=== PATIENT | female | born 1960 | race Caucasian/White ===

== ENCOUNTER 2018-01-15 06:57 | Day surgery (SDC) | payer MEDICARE, OTHER ==
[2018-01-08 10:51] LABS: APPEARANCE,URINE CLEAR; BILIRUBIN,URINE NEGATIVE (NEGATIVE); COLOR,URINE YELLOW; GLUCOSE, URINE NEGATIVE (NEGATIVE); KETONES,URINE NEGATIVE (NEGATIVE); LEUKOCYTE ESTERASE,URINE NEGATIVE (NEGATIVE); NITRITE,URINE NEGATIVE (NEGATIVE); PROTEIN,URINE NEGATIVE (NEGATIVE); URINE SPECIFIC GRAVITY 1.013; UROBILINOGEN,URINE NEGATIVE mg/dL (<2.0)
[2018-01-08 11:03] LABS: HEMATOCRIT 44.1 % (36.0-47.0); HEMOGLOBIN 15.3 g/dL (12.0-15.5); MEAN CORPUSCULAR HEMOGLOBIN 30.4 pg (27.0-33.4); MEAN CORPUSCULAR HGB CONC 34.6 g/dL (32.0-36.0); MEAN CORPUSCULAR VOLUME 88 fl (80-97); PLATELET COUNT 301 10^3/uL (150-450); RED BLOOD COUNT 5.01 10^6/uL (3.72-5.28); RED CELL DISTRIBUTION WIDTH 13.7 % (11.5-14.0); WHITE BLOOD COUNT 9.7 10^3/uL (4.0-10.5)
[2018-01-08 11:22] LABS: ANION GAP 13 (5-19); BLOOD UREA NITROGEN 20 mg/dL (7-20); CALCIUM 9.6 mg/dL (8.4-10.2); CARBON DIOXIDE 30 mmol/L (22-30); CHLORIDE 103 mmol/L (98-107); GLUCOSE 111 mg/dL (75-110); POTASSIUM 4.5 mmol/L (3.6-5.0); SODIUM 146.1 mmol/L (137-145)
--- NOTE | 2018-01-08 11:46 | RADIOLOGY REPORT (SQ) ---
EXAM DESCRIPTION: CHEST PA/LATERAL COMPLETED DATE/TIME: 01/08/2018 11:28 am REASON FOR STUDY: PRE-OP COMPARISON: Chest films 07/05/2015 EXAM PARAMETERS: NUMBER OF VIEWS: two views TECHNIQUE: Digital Frontal and Lateral radiographic views of the chest acquired. RADIATION DOSE: NA LIMITATIONS: none FINDINGS: LUNGS AND PLEURA: No opacities, masses or pneumothorax. No pleural effusion. MEDIASTINUM AND HILAR STRUCTURES: No masses or contour abnormalities. HEART AND VASCULAR STRUCTURES: Heart normal size. No evidence for failure. BONES: Osteopenic. Old healed left posterior 7th through 9th rib fractures. Old left anterior 4th t hrough 7th rib fractures. HARDWARE: None in the chest. OTHER: Artifact from body jewelry over the presternal soft tissues. IMPRESSION: NO SIGNIFICANT RADIOGRAPHIC FINDING IN THE CHEST. TECHNICAL DOCUMENTATION: JOB ID: [id number] [employer]- All Rights Reserved Reading location - IP/workstation name: [email or web address]
--- NOTE | 2018-01-08 19:42 | EKG REPORT ---
SEVERITY:- NORMAL ECG - SINUS RHYTHM : Confirmed by: Sandhya Wright MD 08-Jan-2018 19:41:22
[~2018-01-15 06:57] MED LIST: BUPIVACAINE HCL 0.5 % INJ/PF 30 ML SDV ONE; CEFAZOLIN 2 GM/D5W RTU 2 GM/50 ML RTUPB IV PRN; LACTATED RINGERS 1000 ML IV PRN; LIDOCAINE 0.5% INJ-PF (5 MG/ML) 50 ML SDV SUBCUT PRN; LIDOCAINE 1% INJ-PF (10 MG/ML) 30 ML SDV ONE
[2018-01-15] MEDS ORDERED: FAMOTIDINE INJ/PF 20 MG/2 ML SDV IV ONE ×2 (07:54→08:30)
[2018-01-15] MEDS ORDERED: DEXTROSE 5%-1/2 NORMAL SALINE 1,000 ML IV PRN (08:12)
[2018-01-15] MEDS ORDERED: ALBUTEROL SULFATE 0.083% NEB 2.5 MG/3 ML AMPUL NEB ONE ×2 (08:16→08:30)
[2018-01-15] MEDS ORDERED: RINGERS SOLUTION 1,000 ML IV PRN (08:25)
[2018-01-15] MEDS ORDERED: MIDAZOLAM 2 MG/2 ML INJ ONE (08:38)
[2018-01-15] MEDS ORDERED: LIDOCAINE 2% INJ-PF (20 MG/ML) 10 ML AMPUL ONE (08:38)
[2018-01-15] MEDS ORDERED: FENTANYL CITRATE INJ/PF 100 MCG/2 ML AMPUL ONE (08:38)
[2018-01-15] MEDS ORDERED: PROPOFOL INJ 200 MG/20 ML VIAL IV ONE (08:39)
[2018-01-15] MEDS ORDERED: ACETAMINOPHEN 1,000 MG/100 ML RTUPB IV ONE (08:39)
[2018-01-15] MEDS ORDERED: FENTANYL CITRATE INJ/PF 100 MCG/2 ML AMPUL IV PRN ×3 (09:15)
[2018-01-15] MEDS ORDERED: DIPHENHYDRAMINE HCL 50 MG/ML VIAL IV PRN (09:15)
[2018-01-15] MEDS ORDERED: ONDANSETRON HCL INJ/PF 4 MG/2 ML SDV IV PRN ×2 (09:15→09:54)
[2018-01-15] MEDS ORDERED: PROMETHAZINE HCL INJ 25 MG/1 ML VIAL IV PRN (09:15)
[2018-01-15] MEDS ORDERED: HYDROCODONE/ACETAMINOPHEN 5-325 MG TABLET PO PRN (09:54)
[2018-01-15 11:23] VITALS: BP 149/86
--- NOTE | 2018-01-26 10:47 | Operative Report ---
Operative Report DATE OF SURGERY: 01/15/18 PREOPERATIVE DIAGNOSIS: RIGHT carpal tunnel syndrome POSTOPERATIVE DIAGNOSIS: RIGHT carpal tunnel syndrome OPERATION: Endoscopic RIGHT carpal tunnel release SURGEON: HAILE CASTILLO ANESTHESIA: LMAC COMPLICATIONS: None ESTIMATED BLOOD LOSS: Minimal PROCEDURE: Indication for above procedure: 57-year-old female with complaints of numbness and tingling in her right hand. Patient had neurodiagnostic testing confirming carpal tunnel syndrome. We discussed treatment options patient failed conservative management including bracing. At that point decision was made to proceed with operative treatment. Risks and benefits were explained to the patient patient verbalized understanding consented for the procedure. Procedure In Detail: Patient was seen and evaluated in the preoperative holding area. The RIGHT upper extremity was initialized and marked. Patient received Ancef IV for bacterial prophylaxis. Patient was taken back to the operative room where transferred operative table. Patient was then placed under MAC anesthesia. Once adequately anesthetized, a nonsterile tourniquet was placed on the upper extremity. A surgical team debriefing was performed ensuring all instrumentation was available, the surgical procedure was discussed with possible concerns reviewed. Skin was prepped with alcohol a 50:50 10 mL mixture of 1% lidocaine and 0.5% Marcaine plain was injected locally and w/in carpal canal. The upper extremity was prepped with chlorhexidine and alcohol and draped in a sterile fashion. A timeout was done identifying correct patient, procedure and extremity everyone in attendance agree with this and verbalized no concerns.The extremity was then exsanguinated the tourniquet was inflated to 250 mmHg. A transverse skin incision was made just proximal to the wrist flexion crease ulnar to the palmaris longus. Blunt dissection was performed down to the palmaris longus tendon which was retracted radially. Deep to the palmaris longus tendon was the volar carpal ligament this was incised identifying the median nerve deep. With the use of a [place] elevator any soft tissue/synovium was freed from the undersurface of the transverse carpal ligament. The hook of hamate was identified ulnarly. The [employer]Med cannulas were then introduced beginning with #1 progressing to a #3 gently dilating the carpal canal. I then introduced the scope within the cannula and identified transverse carpal ligament ensuring the median nerve was not visualized within the cannula. I triangulated distally with a 25-gauge needle identifying the distal aspect of the transverse carpal ligament, to ensure protection of the superficial palmar arch. The arthroscopic knife was used to incise the transverse carpal ligament under direct visualization with the arthroscopic camera. Any excess transverse fibers that remained after the first past were carefully released with a repeat pass. The median nerve was then directly visualized radially without disruption. Once this was completed I placed the #3 dilator and assured I got complete release of the transverse carpal ligament without residual compression. The median nerve was directly visualized and free of any overlying compression. I then turned my attention to release of the volar antebrachial fascia proximally. Once again a [place] was used to open the wound and I proceeded with cannula #1 to #3. The arthroscope was introduced into the cannula and under direct visualization the volar antebrachial fascia was released. Once this was complete I copiusly irrigated the wound with normal saline. The skin incision was closed with 4-0 Monocryl subcutaneous and a running subcuticular 4-0 Monocryl. This was reinforced with Dermabond and Steri -Strips. Sterile, 4 x 4's and a Ilya bandage was placed loosely. Sponge counts , instrument counts and needle counts were correct. The was no intraoperative complications patient tolerated the procedure well and was stable to PACU.
--- NOTE | 2018-01-26 10:47 | Discharge Summary ---
Discharge Summary (SDC) - Discharge Final Diagnosis: RIGHT carpal tunnel syndrome Date of Surgery: 01/15/18 Discharge Date: 01/15/18 Condition: Good Treatment or Instructions: Schedule Follow Up w/ Dr. Reese Hill @ [facility] for Surgery to be seen in 10-14 days or as scheduled [place]: [place]: [place]: May remove dressing on postop day #3, keep incision covered and dry. Ice and elevate May begin finger range of motion attempting to make full fist. Stool softener of choice when on pain medication. Prescriptions: Hydrocodone/Acetaminophen [[place] 5-325 mg Tablet] 1 tab PO Q6 PRN #15 tablet PRN Reason: Referrals: BETH GREEN MD [Primary Care Provider] - Respiratory Treatments at Home: Deep Breathing/Coughing, Incentive Spirometer Discharge Activity: No Lifting Over 10 Pounds, No Lifting/Push/Pulling Report the Following to Your Physician Immediately: Fever over 101 Degrees, Unusual Bleeding, Redness, Swelling, Warmth, Increased Soreness
== END 2018-01-15 11:20 | disposition home or self-care (01) ==
LOC: OROUT 06:57
PROVIDERS: ATTEND Orthopaedic Surgery
DX: G56.03 Carpal tunnel syndrome, bilateral upper limbs (principal); E03.9 Hypothyroidism, unspecified; I10 Essential (primary) hypertension; K21.9 Gastro-esophageal reflux disease without esophagitis; M79.7 Fibromyalgia; M19.90 Unspecified osteoarthritis, unspecified site; J44.9 Chronic obstructive pulmonary disease, unspecified; E66.9 Obesity, unspecified; Z79.51 Long term (current) use of inhaled steroids; Z79.899 Other long term (current) drug therapy; Z79.891 Long term (current) use of opiate analgesic; Z99.81 Dependence on supplemental oxygen; Z68.34 Body mass index [BMI] 34.0-34.9, adult
CPT/HCPCS: 93005; 36415; 85027; 80048; 81001; 71046; 93010; 94640; 29848; J2250; J3010; J3490 ×2; J2704; S0028; A9270; J0690; J0131; 1810

== ENCOUNTER → 2019-06-05 | Outpatient (CLI) | payer MEDICARE ==
--- NOTE | 2019-06-05 16:25 | RADIOLOGY REPORT (SQ) ---
EXAM DESCRIPTION: CHEST PA/LATERAL COMPLETED DATE/TIME: 06/05/2019 4:06 pm REASON FOR STUDY: PRE-OP COMPARISON: Chest films 01/08/2018, 09/05/2014 EXAM PARAMETERS: NUMBER OF VIEWS: two views TECHNIQUE: Digital Frontal and Lateral radiographic views of the chest acquired. RADIATION DOSE: NA LIMITATIONS: none FINDINGS: LUNGS AND PLEURA: No opacities, masses or pneumothorax. No pleural effusion. MEDIASTINUM AND HILAR STRUCTURES: No masses or contour abnormalities. HEART AND VASCULAR STRUCTURES: Heart normal size. No evidence for failure. BONES: Multiple old healed left lateral rib fractures. HARDWARE: None in the chest. OTHER: No other significant finding. IMPRESSION: NO SIGNIFICANT RADIOGRAPHIC FINDING IN THE CHEST. TECHNICAL DOCUMENTATION: JOB ID: [id number] [employer]- All Rights Reserved Reading location - IP/workstation name: [email or web address]
[2019-06-05 16:35] LABS: APPEARANCE,URINE SLIGHTLY-CLOUDY; BILIRUBIN,URINE NEGATIVE (NEGATIVE); GLUCOSE, URINE NEGATIVE (NEGATIVE); KETONES,URINE TRACE mg/dL (NEGATIVE); LEUKOCYTE ESTERASE,URINE TRACE (NEGATIVE); NITRITE,URINE NEGATIVE (NEGATIVE); PROTEIN,URINE 30 mg/dL (NEGATIVE); URINE SPECIFIC GRAVITY 1.023
[2019-06-05 16:36] LABS: COLOR,URINE YELLOW
[2019-06-05 16:38] LABS: ABSOLUTE BASOPHILS # (AUTO) 0.1 10^3/uL (0.0-0.2); ABSOLUTE EOSINOPHILS # (AUTO) 0.5 10^3/uL (0.0-0.6); ABSOLUTE LYMPHOCYTES (AUTO) 4.2 10^3/uL (0.5-4.7); ABSOLUTE MONOCYTES (AUTO) 0.9 10^3/uL (0.1-1.4); ABSOLUTE NEUT (AUTO) 5.8 10^3/uL (1.7-8.2); BASOPHILS % (AUTO) 0.6 % (0-2); EOSINOPHILS % (AUTO) 4.5 % (0-6); HEMATOCRIT 45.2 % (36.0-47.0); HEMOGLOBIN 15.4 g/dL (12.0-15.5); LYMPHOCYTES % (AUTO) 36.7 % (13-45); MEAN CORPUSCULAR HEMOGLOBIN 29.8 pg (27.0-33.4); MEAN CORPUSCULAR HGB CONC 33.9 g/dL (32.0-36.0); MEAN CORPUSCULAR VOLUME 88 fl (80-97); MONOCYTES % (AUTO) 8.1 % (3-13); PLATELET COUNT 271 10^3/uL (150-450); RED BLOOD COUNT 5.15 10^6/uL (3.72-5.28); RED CELL DISTRIBUTION WIDTH 13.7 % (11.5-14.0); SEGMENTED NEUTROPHILS % (AUTO) 50.1 % (42-78); TOTAL CELLS COUNTED % (AUTO) 100 %; WHITE BLOOD COUNT 11.5 10^3/uL (4.0-10.5)
[2019-06-05 16:52] LABS: ANION GAP 10 (5-19); BLOOD UREA NITROGEN 17 mg/dL (7-20); CALCIUM 10.1 mg/dL (8.4-10.2); CARBON DIOXIDE 32 mmol/L (22-30); CHLORIDE 99 mmol/L (98-107); GLUCOSE 123 mg/dL (75-110); POTASSIUM 4.3 mmol/L (3.6-5.0)
--- NOTE | 2019-06-05 18:01 | EKG REPORT ---
SEVERITY:- OTHERWISE NORMAL ECG - SINUS RHYTHM ATRIAL PREMATURE COMPLEX : Confirmed by: Ben Menezes MD 05-Jun-2019 18:00:45
== END ==
LOC: OD 15:29
PROVIDERS: ATTEND Orthopaedic Surgery
DX: M17.11 Unilateral primary osteoarthritis, right knee (principal); M17.12 Unilateral primary osteoarthritis, left knee; I10 Essential (primary) hypertension
CPT/HCPCS: 36415; 71046; 80048; 81001; 85025; 93005; 93010

== ENCOUNTER 2019-06-30 05:27 | Day surgery (SDC) | payer MEDICARE ==
[~2019-06-30 05:27] MED LIST changes: -BUPIVACAINE HCL 0.5 % INJ/PF 30 ML SDV ONE; +BUPIVACAINE INJ/PF LIPOSOME/PF 266 MG/20 ML SDV INJ PRN; -CEFAZOLIN 2 GM/D5W RTU 2 GM/50 ML RTUPB IV PRN; +CEFAZOLIN INJ 1 GM VIAL IV PRN; +IBUPROFEN 800 MG in NORMAL SALINE 250 ML IV PRN; -LIDOCAINE 1% INJ-PF (10 MG/ML) 30 ML SDV ONE; +OXYCODONE HCL SR 10 MG TABLET PO PRN; +PANTOPRAZOLE SODIUM 20 MG TABLET.DR PO PRN; +VANCOMYCIN HCL 1,000 MG in DEXTROSE 5%-WATER 250 ML IV PRN
[2019-06-30] MEDS ORDERED: OXYCODONE HCL SR 10 MG TABLET PO ONE (06:30)
[2019-06-30] MEDS ORDERED: PANTOPRAZOLE SODIUM 20 MG TABLET.DR PO ONE (06:30)
[2019-06-30] MEDS ORDERED: CEFAZOLIN INJ 1 GM VIAL ONE (06:38)
[2019-06-30] MEDS ORDERED: KETAMINE HCL INJ 500 MG/10 ML VIAL ONE (06:58)
[2019-06-30] MEDS ORDERED: MIDAZOLAM 2 MG/2 ML INJ ONE (06:58)
[2019-06-30] MEDS ORDERED: EPINEPHRINE INJ/PF 1 MG/1 ML AMPULE ONE (06:58)
[2019-06-30] MEDS ORDERED: FENTANYL CITRATE INJ/PF 100 MCG/2 ML AMPUL ONE ×2 (06:58→07:13)
[2019-06-30] MEDS ORDERED: TRANEXAMIC ACID INJ/PF 1,000 MG/10 ML SDV ONE (06:59)
[2019-06-30] MEDS ORDERED: EPHEDRINE SULFATE INJ 50 MG/1 ML AMPULE ONE (06:59)
[2019-06-30] MEDS ORDERED: PROPOFOL INJ 200 MG/20 ML VIAL IV ONE (06:59)
[2019-06-30] MEDS ORDERED: LIDOCAINE 0.5% INJ-PF (5 MG/ML) 50 ML SDV ONE (07:00)
[2019-06-30] MEDS ORDERED: ALBUTEROL SULFATE 0.083% NEB 2.5 MG/3 ML AMPUL NEB ONE (07:01)
[2019-06-30] MEDS ORDERED: MORPHINE SULFATE 10 MG/ML INJ ONE (07:13)
[2019-06-30] MEDS ORDERED: BUPIVACAINE INJ/PF LIPOSOME/PF 266 MG/20 ML SDV ONE (08:43)
[2019-06-30] MEDS ORDERED: MORPHINE SULFATE 10 MG/ML INJ IV PRN (09:11)
[2019-06-30] MEDS ORDERED: PROMETHAZINE HCL INJ 25 MG/1 ML VIAL IV PRN ×2 (09:11)
[2019-06-30] MEDS ORDERED: DIPHENHYDRAMINE HCL 50 MG/ML VIAL IV PRN ×2 (09:11→09:56)
[2019-06-30] MEDS ORDERED: FENTANYL CITRATE INJ/PF 100 MCG/2 ML AMPUL IV PRN ×3 (09:11)
[2019-06-30] MEDS ORDERED: ONDANSETRON HCL INJ/PF 4 MG/2 ML SDV IV PRN ×2 (09:11→09:56)
[2019-06-30] MEDS ORDERED: OXYCODONE-ACETAMINOPHEN 5-325 MG TABLET PO PRN ×2 (09:11)
[2019-06-30] MEDS ORDERED: MEPERIDINE HCL/PF INJ 25 MG/1 ML DISP.SYRIN IV PRN (09:11)
[2019-06-30] MEDS ORDERED: ALBUTEROL SULFATE 0.083% NEB 2.5 MG/3 ML AMPUL NEB PRN (09:55)
--- NOTE | 2019-06-30 09:55 | Operative Report ---
Operative Report DATE OF SURGERY: 06/30/19 PREOPERATIVE DIAGNOSIS: Bilateral knee arthritis OPERATION: Right knee, hardware removal and total knee arthroplasty. Left knee total knee arthroplasty. SURGEON: KELTON ROBLES ANESTHESIA: GA TISSUE REMOVED OR ALTERED: Bone to pathology. Screws to CSS ESTIMATED BLOOD LOSS: 250 PROCEDURE: Implants used: Femur: [place] triathlon size 4 PS femur Tibia: 4 universal tibia with 50 mm extension Tibial liner: 9 Millimeters CS insert Patella: 38 mm oval patella Procedure with the patient supine on the operating table the laterally limbs are prepped and draped in a sterile fashion. The right limb was elevated for exsanguination and the tourniquet inflated to 280 torr. A standard midline median parapatellar approach the knee is taken. Tissue dissection extra E ensues over the lateral tibial plateau and the 3 existing screws from a prior tibial plateau ORIF are removed uneventfully. He is then exposed through a median parapatellar approach. Access is gained to the femoral canal through the intercondylar notch. Intramedullary alignment instrumentation used to resect 10 mm of distal femur in 5 of valgus. Sizing guide indicated a size 4 femur. Appropriate cutting jig is then used to fashion anterior posterior and chamfer cuts. The posterior stabilized box was next cut with the appropriate jig. A trial reduction femurs performed and this is judged to be adequate. Attention was next turned to the tibia. Using an extra medullary alignment system to millimeters was resected off the medially tibial plateau. This is sized to a size 4 tibia. A trial reduction was now performed with a 4 femur and a 4 tibia using a 2 millimeters spacer. It is full extension and central patellofemoral tracking. The articular surface the patella was next resected using an oscillating saw. All trial implants were removed. Polymethylmethacrylate is mixed and used to cement the above implants in place. On adequate curing the cement excess cement was removed the tourniquet was deflated hemostasis obtained the wound is then closed in layers using interrupted Vicryl followed by brianna. A sterile compressive dressing was applied and the patient returned to recovery room in satisfactory condition. Upon completing the operation on the right side. An identical procedure was performed on the left side with the exception of hardware removal.
[2019-06-30] MEDS ORDERED: MAG HYDROX/AL HYDROX/SIMETH SUSP 30 ML UDCUP PO PRN (09:56)
[2019-06-30] MEDS ORDERED: ONDANSETRON 4 MG TAB.RAPDIS PO PRN (09:56)
[2019-06-30] MEDS ORDERED: ZOLPIDEM TARTRATE 5 MG TABLET PO PRN (09:56)
[2019-06-30] MEDS ORDERED: ACETAMINOPHEN 325 MG TABLET PO PRN (09:56)
[2019-06-30] MEDS: FENTANYL CITRATE INJ/PF 100 MCG/2 ML AMPUL ONE ×2 (11:00→11:05)
[2019-06-30] MEDS: RINGERS SOLUTION,LACTATED 1,000 ML IV PRN ×2 (12:12→21:26)
--- NOTE | 2019-06-30 12:14 | RADIOLOGY REPORT (SQ) ---
EXAM DESCRIPTION: KNEE LEFT 2 VIEWS COMPLETED DATE/TIME: 06/30/2019 11:39 am REASON FOR STUDY: Post OP -Long Cassette in PACU M17.11 UNILATERAL PRIMARY OSTEOARTHRITIS, RIGHT KN EE M17.12 UNILATERAL PRIMARY OSTEOARTHRITIS, LEFT KNEE D50.9 IRON DEFICIENCY ANEMIA, UNSPECIFIED COMPARISON: None. NUMBER OF VIEWS: Two view(s). TECHNIQUE: Digital radiographic images of the left knee post-procedure. LIMITATIONS: None. FINDINGS: BONES: No worrisome or unexpected findings post-procedure. DEVICE: Total knee arthroplasty. SOFT TISSUES: No worrisome findings. Expected postoperative soft tissue changes. IMPRESSION: SATISFACTORY POSTOPERATIVE LEFT KNEE. TECHNICAL DOCUMENTATION: JOB ID: [id number] [employer]- All Rights Reserved Reading location - IP/workstation name: [email or web address]
--- NOTE | 2019-06-30 12:14 | RADIOLOGY REPORT (SQ) ---
EXAM DESCRIPTION: KNEE RIGHT 2 VIEWS COMPLETED DATE/TIME: 06/30/2019 11:39 am REASON FOR STUDY: Post OP -Long Cassette in PACU M17.11 UNILATERAL PRIMARY OSTEOARTHRITIS, RIGHT KN EE M17.12 UNILATERAL PRIMARY OSTEOARTHRITIS, LEFT KNEE D50.9 IRON DEFICIENCY ANEMIA, UNSPECIFIED COMPARISON: None. NUMBER OF VIEWS: Two view(s). TECHNIQUE: Digital radiographic images of the right knee post-procedure. LIMITATIONS: None. FINDINGS: BONES: No worrisome or unexpected findings post-procedure. DEVICE: Total knee arthroplasty SOFT TISSUES: No worrisome findings. Expected postoperative soft tissue changes. IMPRESSION: SATISFACTORY POSTOPERATIVE RIGHT KNEE. TECHNICAL DOCUMENTATION: JOB ID: [id number] [employer]- All Rights Reserved Reading location - IP/workstation name: [email or web address]
[2019-06-30] MEDS ORDERED: TRANEXAMIC ACID INJ/PF 1,000 MG/10 ML SDV IV ONE ×2 (12:15→16:30)
[2019-06-30] MEDS: CYCLOBENZAPRINE HCL 10 MG TABLET PO SCH ×2 (12:39→17:02)
[2019-06-30] MEDS: DIAZEPAM 5 MG TABLET PO SCH (12:40)
[2019-06-30] MEDS: OXYCODONE HCL SR 10 MG TABLET PO SCH ×2 (12:40→21:25)
[2019-06-30] MEDS: SENNOSIDES/DOCUSATE 8.6-50 MG 1 EACH TABLET PO SCH ×2 (12:40→17:02)
[2019-06-30] MEDS: PRENATAL VITAMIN W DHA CAPSULE PO SCH (12:40)
[2019-06-30] MEDS: LORATADINE 10 MG TABLET PO SCH (12:40)
[2019-06-30] MEDS: LEVOTHYROXINE SODIUM 0.075 MG TABLET PO SCH (13:17)
[2019-06-30] MEDS: LEVOTHYROXINE SODIUM 0.1 MG TABLET PO SCH (13:18)
[2019-06-30] MEDS: GABAPENTIN 300 MG CAPSULE PO SCH (13:37)
[2019-06-30] MEDS ORDERED: KETOROLAC TROMETHAMINE 60 MG/2 ML SDV ONE (14:27)
[2019-06-30] MEDS ORDERED: VECURONIUM BROMIDE INJ 10 MG VIAL IV ONE (14:27)
[2019-06-30] MEDS ORDERED: SUCCINYLCHOLINE CHLORIDE INJ 200 MG/10 ML VIAL ONE (14:27)
[2019-06-30] MEDS ORDERED: ONDANSETRON HCL INJ/PF 4 MG/2 ML SDV ONE (14:27)
[2019-06-30] MEDS ORDERED: GLYCOPYRROLATE 1 MG/5 ML VIAL ONE (14:27)
[2019-06-30] MEDS ORDERED: DEXAMETHASONE SOD PHOSPHATE INJ 4 MG/1 ML VIAL ONE (14:27)
[2019-06-30] MEDS: IBUPROFEN 800 MG in NORMAL SALINE 250 ML IV SCH (15:48)
[2019-06-30] MEDS: FLUTICASONE/VILANTEROL 200-25 MCG/DOSE IH SCH (15:51)
[2019-06-30] MEDS: OXYCODONE HCL IR 5 MG TABLET PO PRN (17:02)
[2019-06-30] MEDS ORDERED: (PENDING PHARMACY ID) (Omeprazole [Prilosec] 20 MG) PO SCH (18:00)
[2019-06-30] MEDS ORDERED: (PENDING PHARMACY ID) (Rosuvastatin Calcium [Rosuvastatin Calcium] 10 MG) PO SCH (18:00)
[2019-06-30] MEDS ORDERED: ATORVASTATIN CALCIUM 20 MG TABLET PO SCH (22:00)
[2019-06-30] MEDS ORDERED: VANCOMYCIN HCL 1,000 MG in DEXTROSE 5%-WATER 250 ML IV ONE (22:00)
[2019-06-30] MEDS ORDERED: PAROXETINE HCL 20 MG TABLET PO SCH (22:00)
[2019-07-01] MEDS: IBUPROFEN 800 MG in NORMAL SALINE 250 ML IV SCH ×2 (00:28→05:18)
[2019-07-01] MEDS: LEVOTHYROXINE SODIUM 0.075 MG TABLET PO SCH (05:19)
[2019-07-01] MEDS: LEVOTHYROXINE SODIUM 0.1 MG TABLET PO SCH (05:19)
[2019-07-01] MEDS ORDERED: PANTOPRAZOLE SODIUM 40 MG TABLET.DR PO SCH (06:00)
[2019-07-01 06:04] LABS: HEMATOCRIT 25.2 % (36.0-47.0); HEMOGLOBIN 8.6 g/dL (12.0-15.5); MEAN CORPUSCULAR HEMOGLOBIN 29.9 pg (27.0-33.4); MEAN CORPUSCULAR HGB CONC 34.1 g/dL (32.0-36.0); MEAN CORPUSCULAR VOLUME 88 fl (80-97); PLATELET COUNT 220 10^3/uL (150-450); RED BLOOD COUNT 2.88 10^6/uL (3.72-5.28); RED CELL DISTRIBUTION WIDTH 13.5 % (11.5-14.0); WHITE BLOOD COUNT 15.2 10^3/uL (4.0-10.5)
[2019-07-01 06:26] LABS: ANION GAP 10 (5-19); BLOOD UREA NITROGEN 17 mg/dL (7-20); CALCIUM 8.9 mg/dL (8.4-10.2); CARBON DIOXIDE 30 mmol/L (22-30); CHLORIDE 96 mmol/L (98-107); GLUCOSE 167 mg/dL (75-110); POTASSIUM 4.5 mmol/L (3.6-5.0)
--- NOTE | 2019-07-01 07:01 | PDOC DISCHARGE SUMMARY ---
Impression - Admit/DC Date/PCP Admission Date/Primary Care Provider: BETH GREEN MD Discharge Date: 07/01/19 - Discharge Diagnosis (1) Arthritis of both knees Is this a current diagnosis for this admission?: Yes - Additional Information Resuscitation Status: Full Code Discharge Diet: Regular Discharge Activity: Balance Activity w/Rest, No tub bath Referrals: KELTON ROBLES MD [ACTIVE STAFF] - 07/15/19 10:00 am Home Medications: Albuterol Sulfate [Ventolin 0.083% Neb 2.5 mg/3 mL Ampul] 1 vial NEB Q4 PRN 07/21/15 Amlodipine Besylate 10 mg PO QAM 07/21/15 Budesonide/Formoterol Fumarate [Symbicort HFA 160-4.5 mcg Inhaler 6 gm] 2 puff IH Q12 07/21/15 Cyclobenzaprine HCl [Flexeril 10 mg Tablet] 10 mg PO BID 07/21/15 Diazepam [Valium 5 mg Tablet] 5 mg PO DAILY 07/21/15 Diclofenac Sodium [Voltaren] 75 mg PO BID 07/21/15 Levothyroxine Sodium [Synthroid] 175 mcg PO QAM 07/21/15 Omeprazole [Prilosec] 20 mg PO QPM 07/21/15 Paroxetine HCl [Paxil] 20 mg PO QHS 07/21/15 Tramadol HCl 50 mg PO Q8H PRN 07/21/15 Loratadine [Claritin 10 mg Tablet] 10 mg PO DAILY 01/08/18 Rosuvastatin Calcium 10 mg PO QPM 01/08/18 Albuterol Sulfate [Proair HFA Inhalation Aerosol 8.5 gm MDI] 1 puff IN PRN PRN 06/16/19 Gabapentin 600 mg PO DAILY 06/16/19 History of Present Illiness History of Present Illness: ROSALBA CORTEZ is a 58 year old female Patient is a 58-year-old white female with a posttraumatic osteoarthritis of the right knee and primary osteoarthritis of the left knee with progressive bilateral knee pain and functional disability. Patient submitted for elective bilateral knee arthroplasty. Hospital Course Hospital Course: Patient is admitted through the operating where she undergoes an uncomplicated bilateral knee arthroplasty. She is returned to the floor in satisfactory condition. She makes excellent progress with physical therapy ambulating and weightbearing as tolerated basis. Physical Exam Vital Signs: Temp Pulse Resp BP Pulse Ox 37.2 C 106 H 16 122/82 92 06/30/19 18:00 06/30/19 18:00 06/30/19 18:00 06/30/19 18:00 06/30/19 18:00 Intake & Output 06/29/19 06/30/19 07/01/19 06:59 06:59 06:59 Intake Total 0 6020 Output Total 1000 Balance 0 5020 Weight 98.88 kg 107 kg General appearance: PRESENT: no acute distress Head exam: PRESENT: normocephalic Respiratory exam: PRESENT: unlabored Cardiovascular exam: PRESENT: RRR Pulses: PRESENT: +1 pedal pulses bilateral Vascular exam: PRESENT: normal capillary refill GI/Abdominal exam: PRESENT: soft Rectal exam: PRESENT: deferred Musculoskeletal exam: PRESENT: other - Left knee compressive dressing removed on the morning of postop day 1. Underlying OpSite dressings clean dry and intact. Right knee compressive dressing is removed. Underlying OpSite is saturated. This is changed. Wound is well approximated with brianna. Is clean dry and intact. Neurological exam: PRESENT: alert, awake, oriented to person, oriented to place, oriented to time, oriented to situation. ABSENT: motor sensory deficit Psychiatric exam: PRESENT: appropriate affect, normal mood. ABSENT: homicidal ideation, suicidal ideation Skin exam: PRESENT: dry, intact, warm. ABSENT: cyanosis, rash Results Laboratory Results: WBC 15.2 10^3/uL (4.0-10.5) H 07/01/19 05:28 RBC 2.88 10^6/uL (3.72-5.28) L 07/01/19 05:28 Hgb 8.6 g/dL (12.0-15.5) L 07/01/19 05:28 Hct 25.2 % (36.0-47.0) L 07/01/19 05:28 MCV 88 fl (80-97) 07/01/19 05:28 MCH 29.9 pg (27.0-33.4) 07/01/19 05:28 MCHC 34.1 g/dL (32.0-36.0) 07/01/19 05:28 RDW 13.5 % (11.5-14.0) 07/01/19 05:28 Plt Count 220 10^3/uL (150-450) 07/01/19 05:28 Sodium 136.0 mmol/L (137-145) L 07/01/19 05:28 Potassium 4.5 mmol/L (3.6-5.0) 07/01/19 05:28 Chloride 96 mmol/L (98-107) L 07/01/19 05:28 Carbon Dioxide 30 mmol/L (22-30) 07/01/19 05:28 Anion Gap 10 (5-19) 07/01/19 05:28 BUN 17 mg/dL (7-20) 07/01/19 05:28 Creatinine 0.89 mg/dL (0.52-1.25) 07/01/19 05:28 Est GFR ( Amer) > 60 (>60) 07/01/19 05:28 Est GFR (MDRD) Non-Af > 60 (>60) 07/01/19 05:28 Glucose 167 mg/dL (75-110) H 07/01/19 05:28 Calcium 8.9 mg/dL (8.4-10.2) 07/01/19 05:28 Impressions: Knee X-Ray 06/30/19 09:59 IMPRESSION: SATISFACTORY POSTOPERATIVE LEFT KNEE. Knee X-Ray 06/30/19 09:59 IMPRESSION: SATISFACTORY POSTOPERATIVE RIGHT KNEE. Plan Plan of Treatment: Discharge home with home health services and DME. Follow-up with Dr. Robles and [facility] for surgery in 2 weeks for staple removal. Time Spent: Less than 30 Minutes Stroke Is this a Stroke Patient?: No Stroke Pt being discharged on Anti-thrombolytic therapy?: Yes Acute Heart Failure - Is this a Heart Failure Patient?: No
[2019-07-01] MEDS ORDERED: AMLODIPINE BESYLATE 10 MG TABLET PO SCH (08:00)
[2019-07-01] MEDS ORDERED: (PENDING PHARMACY ID) (Levothyroxine Sodium [Synthroid] 175 MCG) PO SCH (08:00)
[2019-07-01] MEDS: DIAZEPAM 5 MG TABLET PO SCH (09:26)
[2019-07-01] MEDS: PRENATAL VITAMIN W DHA CAPSULE PO SCH (09:26)
[2019-07-01] MEDS: OXYCODONE HCL IR 5 MG TABLET PO PRN (09:26)
[2019-07-01] MEDS: OXYCODONE HCL SR 10 MG TABLET PO SCH (09:26)
[2019-07-01] MEDS: LORATADINE 10 MG TABLET PO SCH (09:27)
[2019-07-01] MEDS: CYCLOBENZAPRINE HCL 10 MG TABLET PO SCH (09:27)
[2019-07-01] MEDS: GABAPENTIN 300 MG CAPSULE PO SCH (09:27)
[2019-07-01] MEDS: SENNOSIDES/DOCUSATE 8.6-50 MG 1 EACH TABLET PO SCH (09:27)
[2019-07-01] MEDS: FLUTICASONE/VILANTEROL 200-25 MCG/DOSE IH SCH (09:31)
[2019-07-01] MEDS ORDERED: ASPIRIN 325 MG TABLET, ENT COATED PO SCH (10:00)
[2019-07-01] MEDS ORDERED: ASPIRIN 81 MG TABLET, ENT COATED PO SCH (10:00)
[2019-07-01 12:51] VITALS: BP 108/58
== END 2019-07-01 12:17 | disposition home health service (06) ==
LOC: OROUT 05:27 → INOR 05:27 → UNDOADMIN 05:27 → EDSTATUS 07:30 → 4S 11:58 → OROUT 07-01 12:17
PROVIDERS: ATTEND Orthopaedic Surgery
DX: M17.2 Bilateral post-traumatic osteoarthritis of knee (principal); D50.9 Iron deficiency anemia, unspecified; Z79.51 Long term (current) use of inhaled steroids; Z79.899 Other long term (current) drug therapy; E03.9 Hypothyroidism, unspecified; I10 Essential (primary) hypertension; M79.7 Fibromyalgia; Z87.891 Personal history of nicotine dependence
CPT/HCPCS: 36415; 85027; 80048; 88305 ×2; 88311; 73560 ×2; 94799; 97530; 97110 ×2; 97116 ×2; 97163; 97535; 97165; 01402; 20680; 27442; A9270 ×25; J2250; J0690; J1100; J3490 ×6; J1885; J3010; J2270; J0330; J2405; J7060; J7050 ×2; J7120; J2704; J3370; C9290; J1741 ×2; J0171

== ENCOUNTER 2019-07-20 11:00 | Inpatient (IN) | payer MEDICARE ==
[2019-07-20] MEDS ORDERED: NORMAL SALINE IV ONE (11:19)
[2019-07-20] MEDS ORDERED: ACETAMINOPHEN 325 MG TABLET PO ONE (11:19)
[2019-07-20] MEDS ORDERED: ONDANSETRON HCL INJ/PF 4 MG/2 ML SDV IV ONE (11:21)
[2019-07-20] MEDS ORDERED: HYDROMORPHONE HCL INJ/PF 2 MG/ML AMPULE IV ONE ×2 (11:21→14:51)
--- NOTE | 2019-07-20 11:23 | ER Document Report ---
ED Medical Screen (RME) - General Chief Complaint: Post Surgical Pain Stated Complaint: POST SURGICAL PAIN Time Seen by Provider: 07/20/19 11:17 Primary Care Provider: KELTON ROBLES MD [Primary Care Provider] - Follow up as needed Mode of Arrival: Wheelchair Information source: Patient Notes: 58-year-old female patient 3 weeks post bilateral knee replacement presents to the emergency department with severe pain and swelling to the right knee. She also reports fever at home up to 103. She reports drainage from the area. She states that she called her Ortho on-call and they directed her to the emergency department. Patient is tachycardic and febrile here in the emergency department. Surgery was done by Dr. Robles. I have greeted and performed a rapid initial assessment of this patient. A comprehensive ED assessment and evaluation of the patient, analysis of test results and completion of the medical decision making process will be conducted by additional ED providers. I have specifically instructed the patient or family members with the patient to immediately return to any nursing staff should anything change in the patient's condition or with their chief complaint. TRAVEL OUTSIDE OF THE [place] IN LAST 30 DAYS: No - Related Data Allergies/Adverse Reactions: No Known Allergies Allergy (Verified 07/20/19 11:16) Past Medical History - Past Medical History Cardiac Medical History: Reports: Hx Hypercholesterolemia, Hx Hypertension - meds x 20 years Denies: Hx Atrial Fibrillation, Hx Congestive Heart Failure, Hx Coronary Artery Disease, Hx Heart Attack, Hx Peripheral Vascular Disease, Hx Pulmonary Embolism, Hx Heart Murmur Pulmonary Medical History: Reports: Hx Bronchitis, Hx COPD, Hx Pneumonia - hospitalized 06/09/14, 09/13/14 Denies: Hx Asthma, Hx Respiratory Failure, Hx Sleep Apnea, Hx Tuberculosis Neurological Medical History: Denies: Hx Cerebrovascular Accident, Hx Seizures Endocrine Medical History: Reports: Hx Hypothyroidism - meds x 33 years. Denies: Hx Graves' Disease, Hx Hyperthyroidism Renal/ Medical History: Denies: Hx End Stage Renal Disease, Hx Kidney Stones, Hx Peritoneal Dialysis Malignancy Medical History: Denies: Hx Leukemia, Hx Lung Cancer GI Medical History: Reports: Hx Gastroesophageal Reflux Disease - meds x 7 years . 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 Denies: Hx Appendectomy, Hx Bowel Surgery, Hx Section, Hx Cholecystectomy, Hx Colostomy, Hx Coronary Artery Bypass Graft, Hx Gastric Bypass Surgery, Hx Herniorrhaphy, Hx Hysterectomy, Hx Mastectomy, Hx Pacemaker - Immunizations Hx Diphtheria, Pertussis, Tetanus Vaccination: No Physical Exam - Vital signs Vitals: Temp Pulse Resp BP Pulse Ox 103.0 F H 110 H 16 143/125 H 92 07/20/19 11:13 07/20/19 11:13 07/20/19 11:13 07/20/19 11:13 07/20/19 11:13 Course - Vital Signs Vital signs: Temp Pulse Resp BP Pulse Ox 103.0 F H 110 H 16 143/125 H 92 07/20/19 11:13 07/20/19 11:13 07/20/19 11:13 07/20/19 11:13 07/20/19 11:13 Doctor's Discharge - Discharge Referrals: KELTON ROBLES MD [Primary Care Provider] - Follow up as needed
[2019-07-20 12:02] LABS: VENOUS BLOOD BASE EXCESS 5.9 mmol/L; VENOUS BLOOD HCO3 30.6 mmol/L (20-32); VENOUS BLOOD PCO2 44.8 mmHg (35-63); VENOUS BLOOD PH 7.45 (7.30-7.42)
[2019-07-20 12:08] LABS: HEMATOCRIT 30.9 % (36.0-47.0); MEAN CORPUSCULAR HEMOGLOBIN 27.6 pg (27.0-33.4); MEAN CORPUSCULAR HGB CONC 32.5 g/dL (32.0-36.0); MEAN CORPUSCULAR VOLUME 85 fl (80-97); PLATELET COUNT 621 10^3/uL (150-450); RED BLOOD COUNT 3.64 10^6/uL (3.72-5.28); RED CELL DISTRIBUTION WIDTH 14.5 % (11.5-14.0)
--- NOTE | 2019-07-20 12:09 | ER Document Report ---
ED Fever - General Chief Complaint: Fever Stated Complaint: POST SURGICAL PAIN Time Seen by Provider: 07/20/19 11:17 Primary Care Provider: KELTON ROBLES MD [ACTIVE STAFF] - Follow up as needed Mode of Arrival: Wheelchair Notes: Patient is a 58-year-old female with a history of hypothyroidism, anxiety, depression, GERD, hypertension and fibromyalgia who presents to the emergency department with a chief complaint of right knee pain. Patient reports that she had a bilateral knee replacement on June [address] Robles. Patient reports that she did see him in the office on and had her brianna removed. Patient reports that since the surgery she has had a clear red drainage int ermittently coming from the right knee. She states that on Sunday after having the brianna removed she sat in a chair that was lowered to the ground and when she attempted to get up she busted open part of the incision. Patient reports she has been keeping an eye on this but today developed a fever and increased redness and swelling with pain to the right knee. Patient reports a purulent discharge coming from the right knee. Patient denies nausea, vomiting or diarrhea. TRAVEL OUTSIDE OF THE [place] IN LAST 30 DAYS: No - Related Data Allergies/Adverse Reactions: No Known Allergies Allergy (Verified 07/20/19 11:16) Home Medications: acetaminophen. oxycodone. paxil. allergy relief. diazepam. omeprazole. levothyroxin. gabapentin. cyclobenzapr. diclofenac. rosuvastatin. tramadol. amlodipine. unisom. diazepam. allergy pills Past Medical History - General Information source: Patient - Social History Smoking Status: Unknown if Ever Smoked Chew tobacco use (# tins/day): No Frequency of alcohol use: None Drug Abuse: None Lives with: Spouse/Significant other Family History: None Patient has suicidal ideation: No Patient has homicidal ideation: No - Past Medical History Cardiac Medical History: Reports: Hx Hypercholesterolemia, Hx Hypertension - meds x 20 years Denies: Hx Atrial Fibrillation, Hx Congestive Heart Failure, Hx Coronary Artery Disease, Hx Heart Attack, Hx Peripheral Vascular Disease, Hx Pulmonary Embolism, Hx Heart Murmur Pulmonary Medical History: Reports: Hx Bronchitis, Hx COPD, Hx Pneumonia - hospitalized 06/09/14, 09/13/14 Denies: Hx Asthma, Hx Respiratory Failure, Hx Sleep Apnea, Hx Tuberculosis EENT Medical History: Reports: None Neurological Medical History: Reports: None. Denies: Hx Cerebrovascular Accident, Hx Seizures Endocrine Medical History: Reports: Hx Hypothyroidism - meds x 33 years. Denies: Hx Graves' Disease, Hx Hyperthyroidism Renal/ Medical History: Reports: None. Denies: Hx End Stage Renal Disease, Hx Kidney Stones, Hx Peritoneal Dialysis Malignancy Medical History: Reports: None. Denies: Hx Leukemia, Hx Lung Cancer GI Medical History: Reports: Hx Gastroesophageal Reflux Disease - meds x 7 years. 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 Denies: Hx Fractures - RT tibia ORIF Infectious Medical History: Reports: None. Denies: Hx HIV Past Surgical History: Reports: Hx Tonsillectomy - as child, Hx Tubal Ligation. Denies: Hx Appendectomy, Hx Bowel Surgery, Hx Section, Hx Cholecystectomy, Hx Colostomy, Hx Coronary Artery Bypass Graft, Hx Gastric Bypass Surgery, Hx Herniorrhaphy, Hx Hysterectomy, Hx Mastectomy, Hx Pacemaker - Immunizations Hx Diphtheria, Pertussis, Tetanus Vaccination: No Hx Pneumococcal Vaccination: 12/14/17 Review of Systems - Review of Systems Constitutional: See HPI EENT: No symptoms reported Cardiovascular: No symptoms reported Respiratory: No symptoms reported Gastrointestinal: No symptoms reported Genitourinary: No symptoms reported Female Genitourinary: No symptoms reported Musculoskeletal: See HPI Skin: See HPI Hematologic/Lymphatic: No symptoms reported Neurological/Psychological: No symptoms reported Physical Exam - Vital signs Vitals: Temp Pulse Resp BP Pulse Ox 103.0 F H 110 H 16 143/125 H 92 07/20/19 11:13 07/20/19 11:13 07/20/19 11:13 07/20/19 11:13 07/20/19 11:13 Interpretation: Hypertensive, Tachycardic, Febrile - Notes Notes: GENERAL: Well-appearing, well-nourished and in no acute distress. HEAD: Atraumatic, normocephalic. EYES: Pupils equal round and reactive to light, extraocular movements intact, sclera anicteric, conjunctiva are normal. ENT: Nares patent, oropharynx clear without exudates. Moist mucous membranes. NECK: Normal range of motion, supple without lymphadenopathy or JVD. LUNGS: Breath sounds clear to auscultation bilaterally and equal. No wheezes rales or rhonchi. HEART: Regular rate and rhythm without murmurs, rubs or gallops. ABDOMEN: Soft, nontender, normoactive bowel sounds. No guarding, no rebound. No masses appreciated. BACK: No cervical, thoracic, lumbar midline tenderness. No saddle anesthesia, normal distal neurovascular exam. GENITOURINARY: Deferred. EXTREMITIES: Healed vertical scar noted over the left patella, no active drainage, erythema, significant edema or ecchymosis. Patient has a vertical scar noted to the right patella with a 2 cm dehiscence that is draining a purulent thick yellow discharge. There is also a small amount of continuous serous red drainage coming from the site as well. There is erythema and edema noted to the right knee anteriorly. Area is extremely warm to touch and tender. NEUROLOGICAL: Cranial nerves II through XII grossly intact. Normal speech, normal gait. PSYCH: Normal mood, normal affect. SKIN: Warm, Dry, normal turgor, no rashes or lesions noted. Course - Re-evaluation Re-evalutation: 07/20/19 12:03 I did page and spoke with Dr. Maria who is conche loader and unloader for [facility] for surgery to make him aware of the patient complaint and active septic work up. He states he will come see the patient in the emergency department and to consult hospitalist once labs have resulted for admission. Appropriate blood work including lactate has been initiated in triage. Patient receiving IV fluids and pain medication. I did culture the purulent drainage coming from the right knee. Patient was not giving Tylenol as an antipyretic for her fever. Patient is currently not hypotensive and tachycardia has improved since starting IV fluids. Heart rate is 97. 07/20/19 12:18 Lactate 4.6, will continue will IV fluids and initiate antibiotics; Vancomycin and Zosyn. I did speak with pharmacy who suggested dosing the patient with the initial load of vancomycin at 20 mg/kg. We will continue to monitor closely and consult hospitalist when all labs have been received. 07/20/19 13:19 Patient sitting upright on stretcher no acute distress. Patient is receiving IV antibiotics. Patient's tachycardia has improved with a heart rate of 98, patient's oxygen level 91 on room air. Patient's blood pressure 126/67. Patient is stable at this time. 07/20/19 13:32 I did speak with the lead hospitalist, Dr. Moreau for admission, states that since this is a surgical complication the policy states for Ortho to admit but will consult for multi comorbities. 07/20/19 14:25 Dr. Barry Maria to admit, hospitalist to consult, bed request and hospitalist consult ordered and placed into computer. Patient updated. Patient remains stable. Will add on CRP, Sed rate. - Vital Signs Vital signs: Temp Pulse Resp BP Pulse Ox 102.1 F H 110 H 16 143/125 H 96 07/20/19 12:54 07/20/19 11:13 07/20/19 11:13 07/20/19 11:13 07/20/19 11:54 - Laboratory Result Diagrams: 07/20/19 11:34 07/20/19 11:34 Laboratory results interpreted by me: 07/20/19 07/20/19 07/20/19 11:34 11:34 11:34 WBC 30.4 H* RBC 3.64 L Hgb 10.0 L Hct 30.9 L RDW 14.5 H Plt Count 621 H Seg Neuts % (Manual) 90 H Lymphocytes % (Manual) 3 L Abs Neuts (Manual) 28.3 H VBG pH 7.45 H Sodium 135.2 L Chloride 91 L Glucose 224 H Lactic Acid Alkaline Phosphatase 138 H 07/20/19 11:34 WBC RBC Hgb Hct RDW Plt Count Seg Neuts % (Manual) Lymphocytes % (Manual) Abs Neuts (Manual) VBG pH Sodium Chloride Glucose Lactic Acid 4.6 H Alkaline Phosphatase - Diagnostic Test Radiology reviewed: Reports reviewed Radiology results interpreted by me: 07/20/19 14:25 Knee X-Ray 07/20/19 12:03 IMPRESSION: Septic joint with surrounding soft tissue infection Discharge - Discharge Clinical Impression: Elevated lactic acid level Septic joint of right knee joint Qualifiers: Septic arthritis organism: due to unspecified organism Qualified Code(s): M00.9 - Pyogenic arthritis, unspecified Right knee pain Qualifiers: Chronicity: acute Qualified Code(s): M25.561 - Pain in right knee Leukocytosis Qualifiers: Leukocytosis type: unspecified Qualified Code(s): D72.829 - Elevated white blood cell count, unspecified Fever Qualifiers: Fever type: unspecified Qualified Code(s): R50.9 - Fever, unspecified Condition: Stable Disposition: ADMITTED INPATIENT Admitting Provider: Dr. Barry Maria - Orthopedics Unit Admitted: Telemetry Referrals: KELTON ROBLES MD [ACTIVE STAFF] - Follow up as needed
[2019-07-20 12:19] LABS: ALBUMIN 4.3 g/dL (3.5-5.0); ALKALINE PHOSPHATASE 138 U/L (38-126); ANION GAP 16 (5-19); ASPARTATE AMINO TRANSFERASE 28 U/L (14-36); BILIRUBIN,DIRECT 0.2 mg/dL (0.0-0.4); BILIRUBIN,TOTAL 0.6 mg/dL (0.2-1.3); BLOOD UREA NITROGEN 18 mg/dL (7-20); CALCIUM 9.2 mg/dL (8.4-10.2); CARBON DIOXIDE 28 mmol/L (22-30); CHLORIDE 91 mmol/L (98-107); GLUCOSE 224 mg/dL (75-110); POTASSIUM 4.1 mmol/L (3.6-5.0); TOTAL PROTEIN 7.6 g/dL (6.3-8.2)
[2019-07-20] MEDS ORDERED: VANCOMYCIN HCL INJ 1000 MG VIAL IV ONE (12:24)
[2019-07-20] MEDS ORDERED: PIPERACILLIN/TAZOBACTAM 3.375 GM VIAL IV ONE (12:24)
[2019-07-20 12:34] LABS: ABSOLUTE LYMPHOCYTES# (MANUAL) 0.9 10^3/uL (0.5-4.7); ABSOLUTE MONOCYTES # (MANUAL) 1.2 10^3/uL (0.1-1.4); BAND NEUTROPHILS % (MANUAL) 3 % (3-5); BASOPHILS % (MANUAL) 0 % (0-2); EOSINOPHILS % (MANUAL) 0 % (0-6); LYMPHOCYTES % (MANUAL) 3 % (13-45); MONOCYTES % (MANUAL) 4 % (3-13); SEGMENTED NEUTROPHILS % (MAN) 90 % (42-78); TOTAL CELLS COUNTED 100
[2019-07-20 12:37] LABS: WHITE BLOOD COUNT 30.4 10^3/uL (4.0-10.5)
[2019-07-20 12:40] LABS: ANISOCYTOSIS SLIGHT; PLATELET COMMENT INCREASED; TOXIC VACUOLATION PRESENT
--- NOTE | 2019-07-20 13:40 | RADIOLOGY REPORT (SQ) ---
EXAM DESCRIPTION: KNEE RIGHT 2 VIEWS COMPLETED DATE/TIME: 07/20/2019 12:55 pm REASON FOR STUDY: right knee pain, recent replacement 06/30,drainage COMPARISON: Postop knee films 06/30/2019 NUMBER OF VIEWS: Two views. TECHNIQUE: AP, lateral radiographic images acquired of the right knee. LIMITATIONS: None. FINDINGS: MINERALIZATION: Osteopenic BONES: Patient has a total knee replacement in good alignment. No fracture. Patellar resurfacing JOINT: Large joint effusion with air bubbles worrisome for infection SOFT TISSUES: Diffuse anterior and lateral periarticular soft tissue infection with gas-forming organ ism, air bubbles are seen throughout the soft tissues OTHER: No other significant finding. IMPRESSION: Septic joint with surrounding soft tissue infection TECHNICAL DOCUMENTATION: JOB ID: [id number] [employer]- All Rights Reserved Reading location - IP/workstation name: [email or web address]
--- NOTE | 2019-07-20 14:09 | EKG REPORT ---
SEVERITY:- NORMAL ECG - SINUS RHYTHM : Confirmed by: Ben Menezes MD 20-Jul-2019 14:09:17
[2019-07-20] MEDS ORDERED: IBUPROFEN 800 MG TABLET PO ONE (14:12)
[2019-07-20] MEDS ORDERED: ACETAMINOPHEN 325 MG TABLET PO PRN (15:18)
[2019-07-20] MEDS ORDERED: IPRATROPIUM/ALBUTEROL 0.5-2.5 MG/3 ML AMPUL NEB PRN (15:18)
[2019-07-20] MEDS ORDERED: HYDRALAZINE HCL INJ/PF 20 MG/1 ML SDV IV PRN (15:30)
[2019-07-20] MEDS ORDERED: VANCOMYCIN HCL 0 MG in DEXTROSE 5%-WATER 250 ML IV NR (15:30)
--- NOTE | 2019-07-20 15:30 | PDOC CONSULTATION ---
Consultation Consult Date: 07/20/19 Attending physician:: CODY FOY Provider Consulted: GUILLE DARLING Consult reason:: medical co management History of Present Illness Admission Date/PCP: BETH GREEN MD Patient complains of: knee pain and discharge History of Present Illness: ROSALBA CORTEZ is a 58 year old female with a past medical history of hypothyroidism, depression, anxiety, hypertension, and COPD (only uses intermittent O2 at home) who is presenting with increasing right knee pain and drainage. Patient recently underwent bilateral knee replacement on 06/30/[address] Sosa and was discharged on 07/01. Patient reports that she continued to have serosanguineous drainage from the right knee discharge. She reports that she started having fever in the past 1 to 2 days and had increasing redness, swelling and pain on the right knee. She says that her noted purulent discharge coming out from the right knee earlier today. She is being admitted for a septic her right orthopedics. Hospitalist was consulted for medical comanagement for her other medical issues. Upon encounter, she appears comfortable and not in distress. She refused for her right knee to be touched or examined due to pain and tenderness. Past Medical History Cardiac Medical History: Reports: Hyperlipidema, Hypertension - meds x 20 years Denies: Atrial Fibrillation, Congestive Heart Failure, Coronary Artery Disease, Myocardial Infarction, Peripheral Vascular Disease, Pulmonary Embolism, Heart Murmur Pulmonary Medical History: Reports: Bronchitis, Chronic Obstructive Pulmonary Disease (COPD), Pneumonia - hospitalized 06/09/14, 09/13/14 Denies: Asthma, Respiratory Failure, Sleep Apnea, Tuberculosis EENT Medical History: Reports: None Neurological Medical History: Reports: None Denies: Seizures Endocrine Medical History: Reports: Hypothyroidism - meds x 33 years Denies: Hyperthyroidism Renal/ Medical History: Reports: None Denies: End Stage Renal Disease Malignancy Medical History: Reports: None Denies: Leukemia, Lung Cancer GI Medical History: Reports: Gastroesophageal Reflux Disease - meds x 7 years Denies: Crohn's Disease, Hiatal Hernia Musculoskeltal Medical History: Reports: Arthritis - JUVENILE RA, STIHLS DS?, OSTEOARTHRITIS, Fibromyalgia - Dx'ed approx 10 years ago Skin Medical History: Reports: None Psychiatric Medical History: Reports: Bipolar Disorder - no current meds, Depression - meds x 9 years Denies: Post Traumatic Stress Disorder Traumatic Medical History: Reports: None Hematology: Reports: Anemia - episode at age 6-7 years old r/t ASA & Prednisone Rx Denies: Hemophilia, Sickle Cell Disease Infectious Medical History: Reports: None Denies: HIV Past Surgical History Past Surgical History: Reports: Orthopedic Surgery - b/l knees, Tonsillectomy - as child, Tubal Ligation Denies: Amputation, Appendectomy, Section, Cholecystectomy, Colostomy, Coronary Artery Bypass Graft, Gastric Bypass Surgery, Herniorrhaphy, Hysterectomy, Mastectomy, Pacemaker Social History Lives with: Spouse/Significant other Smoking Status: Unknown if Ever Smoked Electronic Cigarette use?: No Hx Recreational Drug Use: No Hx Prescription Drug Abuse: No Family History Family History: None Parental Family History Reviewed: Yes - No premature CAD Children Family History Reviewed: No Sibling(s) Family History Reviewed.: No Medication/Allergy Home Medications: Albuterol Sulfate [Ventolin 0.083% Neb 2.5 mg/3 mL Ampul] 1 vial NEB Q4 PRN 07/21/15 Amlodipine Besylate 10 mg PO QAM 07/21/15 Budesonide/Formoterol Fumarate [Symbicort HFA 160-4.5 mcg Inhaler 6 gm] 2 puff IH Q12 07/21/15 Cyclobenzaprine HCl [Flexeril 10 mg Tablet] 10 mg PO BID 07/21/15 Diazepam [Valium 5 mg Tablet] 5 mg PO DAILY 07/21/15 Diclofenac Sodium [Voltaren] 75 mg PO BID 07/21/15 Levothyroxine Sodium [Synthroid] 175 mcg PO QAM 07/21/15 Omeprazole [Prilosec] 20 mg PO QPM 07/21/15 Paroxetine HCl [Paxil] 20 mg PO QHS 07/21/15 Tramadol HCl 50 mg PO Q8H PRN 07/21/15 Loratadine [Claritin 10 mg Tablet] 10 mg PO DAILY 01/08/18 Rosuvastatin Calcium 10 mg PO QPM 01/08/18 Albuterol Sulfate [Proair HFA Inhalation Aerosol 8.5 gm MDI] 1 puff IN PRN PRN 06/16/19 Gabapentin 600 mg PO DAILY 06/16/19 Allergies/Adverse Reactions: No Known Allergies Allergy (Verified 07/20/19 11:16) Review of Systems All systems: reviewed and no additional remarkable complaints except as stated - as mentioned in HPI Physical Exam Vital Signs: Temp Pulse Resp BP Pulse Ox 101.1 F H 110 H 31 H 126/68 H 93 07/20/19 14:30 07/20/19 11:13 07/20/19 14:01 07/20/19 14:01 07/20/19 14:01 Intake & Output 07/19/19 07/20/19 07/21/19 06:59 06:59 06:59 Weight 221 lb 5.506 oz General appearance: PRESENT: no acute distress, well-developed, well-nourished Head exam: PRESENT: atraumatic, normocephalic Eye exam: PRESENT: conjunctiva pink, EOMI, PERRLA. ABSENT: scleral icterus Ear exam: PRESENT: normal external ear exam Mouth exam: PRESENT: moist, tongue midline Neck exam: ABSENT: carotid bruit, JVD, lymphadenopathy, thyromegaly Respiratory exam: PRESENT: clear to auscultation mike. ABSENT: rales, rhonchi, wheezes Cardiovascular exam: PRESENT: RRR. ABSENT: diastolic murmur, rubs, systolic murmur Pulses: PRESENT: normal dorsalis pedis pul GI/Abdominal exam: PRESENT: normal bowel sounds, soft. ABSENT: distended, guarding, mass, organolmegaly, rebound, tenderness Rectal exam: PRESENT: deferred Extremities exam: PRESENT: other - Right knee swollen, patient refused for her knee to be touched or manipulated for examination Neurological exam: PRESENT: alert, awake, oriented to person, oriented to place, oriented to time, oriented to situation, CN II-XII grossly intact. ABSENT: motor sensory deficit Results Laboratory Results: 07/20/19 11:34 07/20/19 11:34 07/20/19 07/20/19 07/20/19 11:34 11:34 11:34 WBC 30.4 H* RBC 3.64 L Hgb 10.0 L Hct 30.9 L MCV 85 MCH 27.6 MCHC 32.5 RDW 14.5 H Plt Count 621 H Seg Neutrophils % Not Reportable VBG pH 7.45 H VBG pCO2 44.8 VBG HCO3 30.6 VBG Base Excess 5.9 Sodium 135.2 L Potassium 4.1 Chloride 91 L Carbon Dioxide 28 Anion Gap 16 BUN 18 Creatinine 0.89 Est GFR ( Amer) > 60 Glucose 224 H Lactic Acid Calcium 9.2 Total Bilirubin 0.6 AST 28 Alkaline Phosphatase 138 H Total Protein 7.6 Albumin 4.3 07/20/19 07/20/19 11:34 14:29 WBC RBC Hgb Hct MCV MCH MCHC RDW Plt Count Seg Neutrophils % VBG pH VBG pCO2 VBG HCO3 VBG Base Excess Sodium Potassium Chloride Carbon Dioxide Anion Gap BUN Creatinine Est GFR ( Amer) Glucose Lactic Acid 4.6 H 3.2 H Calcium Total Bilirubin AST Alkaline Phosphatase Total Protein Albumin Impressions: Knee X-Ray 07/20/19 12:03 IMPRESSION: Septic joint with surrounding soft tissue infection Assessment and Plan - Diagnosis (1) Septic joint of right knee joint Qualifiers: Septic arthritis organism: due to unspecified organism Qualified Code(s): M00.9 - Pyogenic arthritis, unspecified Is this a current diagnosis for this admission?: Yes Plan: Will likely require drainage or washout by orthopedics. Recommend IV antibiotic therapy with vancomycin and cefepime for now. (2) Sepsis Is this a current diagnosis for this admission?: Yes Plan: Secondary to septic right knee. IV antibiotics as mentioned. Lactic acid is elevated. Continue IV fluids. Continue to cycle lactic acid. (3) COPD (chronic obstructive pulmonary disease) Is this a current diagnosis for this admission?: Yes Plan: Not in exacerbation. Breathing treatments as needed. Resume home inhalers once verified. (4) Hypertension Is this a current diagnosis for this admission?: Yes Plan: Controlled. Resume home meds once verified by pharmacy. (5) Hypothyroidism Is this a current diagnosis for this admission?: Yes Plan: Stable. Resume Synthroid once verified. - Time Time Spent with patient: 25-34 minutes
[2019-07-20 16:14] LABS: APPEARANCE,URINE CLOUDY; BILIRUBIN,URINE NEGATIVE (NEGATIVE); COLOR,URINE YELLOW; GLUCOSE, URINE NEGATIVE (NEGATIVE); KETONES,URINE NEGATIVE (NEGATIVE); PROTEIN,URINE 30 mg/dL (NEGATIVE); URINE SPECIFIC GRAVITY 1.021; UROBILINOGEN,URINE NEGATIVE mg/dL (<2.0)
--- NOTE | 2019-07-20 16:48 | PDOC H&P ---
History of Present Illness Admission Date/PCP: 07/20/19 15:41 BETH GREEN MD Patient complains of: 62-year-old female who status post bilateral total knee arthroplasty on 07/01/[address] Sosa here [facility]. Patient had been doing excellent and had just been seen in the clinic 5 days ago where she had no symptoms that were concerning at that time. Patient did state that she felt like she bent her knee too much about 3 days ago and in 1 of the sutures felt like it came loose and then she started having drainage over the last 3 days from that knee. Patient states that the knee started hurting more over the course of the next 48 hours and the drainage became much more purulent. Patient start experiencing fevers last night into this morning of . At that point patient contact the on-call orthopedist and was told to go the emergency room for septic work-up. History of Present Illness: ROSALBA CORTEZ is a 58 year old female status post BKA 1217 now experiencing signs and symptoms of a septic joint per history above. Past Medical History Cardiac Medical History: Reports: Hyperlipidema, Hypertension - meds x 20 years Denies: Atrial Fibrillation, Congestive Heart Failure, Coronary Artery Disease, Myocardial Infarction, Peripheral Vascular Disease, Pulmonary Embolism, Heart Murmur Pulmonary Medical History: Reports: Bronchitis, Chronic Obstructive Pulmonary Disease (COPD), Pneumonia - hospitalized 06/09/14, 09/13/14 Denies: Asthma, Respiratory Failure, Sleep Apnea, Tuberculosis EENT Medical History: Reports: None Neurological Medical History: Reports: None Denies: Seizures Endocrine Medical History: Reports: Hypothyroidism - meds x 33 years Denies: Hyperthyroidism Renal/ Medical History: Reports: None Denies: End Stage Renal Disease Malignancy Medical History: Reports: None Denies: Leukemia, Lung Cancer GI Medical History: Reports: Gastroesophageal Reflux Disease - meds x 7 years Denies: Crohn's Disease, Hiatal Hernia Musculoskeltal Medical History: Reports: Arthritis - JUVENILE RA, STIHLS DS?, OSTEOARTHRITIS patient's right knee is red and swo, Fibromyalgia - Dx'ed approx 10 years ago Skin Medical History: Reports: None Psychiatric Medical History: Reports: Bipolar Disorder - no current meds, Depr ession - meds x 9 years Denies: Post Traumatic Stress Disorder Traumatic Medical History: Reports: None Hematology: Reports: Anemia - episode at age 6-7 years old r/t ASA & Prednisone Rx Denies: Hemophilia, Sickle Cell Disease Infectious Medical History: Reports: None Denies: HIV Past Surgical History Past Surgical History: Reports: Orthopedic Surgery - b/l knees TKA 07/01, Tonsi llectomy - as child, Tubal Ligation Denies: Amputation, Appendectomy, Section, Cholecystectomy, Colostomy, Coronary Artery Bypass Graft, Gastric Bypass Surgery, Herniorrhaphy, Hysterectomy, Mastectomy, Pacemaker Social History Lives with: Spouse/Significant other Smoking Status: Unknown if Ever Smoked Electronic Cigarette use?: No Hx Recreational Drug Use: No Hx Prescription Drug Abuse: No Family History Family History: None Parental Family History Reviewed: No Children Family History Reviewed: Yes Sibling(s) Family History Reviewed.: No Medication/Allergy Home Medications: Albuterol Sulfate [Ventolin 0.083% Neb 2.5 mg/3 mL Ampul] 1 vial NEB Q4 PRN 07/21/15 Amlodipine Besylate 10 mg PO QAM 07/21/15 Budesonide/Formoterol Fumarate [Symbicort HFA 160-4.5 mcg Inhaler 6 gm] 2 puff IH Q12 07/21/15 Cyclobenzaprine HCl [Flexeril 10 mg Tablet] 10 mg PO BID 07/21/15 Diazepam [Valium 5 mg Tablet] 5 mg PO DAILY 07/21/15 Diclofenac Sodium [Voltaren] 75 mg PO BID 07/21/15 Levothyroxine Sodium [Synthroid] 175 mcg PO QAM 07/21/15 Omeprazole [Prilosec] 20 mg PO QPM 07/21/15 Paroxetine HCl [Paxil] 20 mg PO QHS 07/21/15 Tramadol HCl 50 mg PO Q8H PRN 07/21/15 Loratadine [Claritin 10 mg Tablet] 10 mg PO DAILY 01/08/18 Rosuvastatin Calcium 10 mg PO QPM 01/08/18 Albuterol Sulfate [Proair HFA Inhalation Aerosol 8.5 gm MDI] 1 puff IN PRN PRN 06/16/19 Gabapentin 600 mg PO DAILY 06/16/19 Allergies/Adverse Reactions: No Known Allergies Allergy (Verified 07/20/19 11:16) Physical Exam Vital Signs: Temp Pulse Resp BP Pulse Ox 99.7 F 110 H 24 H 113/54 L 94 07/20/19 16:24 07/20/19 11:13 07/20/19 16:02 07/20/19 16:02 07/20/19 16:02 Intake & Output 07/19/19 07/20/19 07/21/19 06:59 06:59 06:59 Intake Total 3010 Balance 3010 Weight 100.4 kg General appearance: PRESENT: cooperative, obese Additonal comments: Patient's right knee is red and swollen with exudate noted. I did not undress it but there is exudate on the dressing. Cultures have been sent. Results Laboratory Results: 07/20/19 11:34 07/20/19 11:34 07/20/19 07/20/19 07/20/19 11:34 11:34 11:34 WBC 30.4 H* RBC 3.64 L Hgb 10.0 L Hct 30.9 L MCV 85 MCH 27.6 MCHC 32.5 RDW 14.5 H Plt Count 621 H Seg Neutrophils % Not Reportable VBG pH 7.45 H VBG pCO2 44.8 VBG HCO3 30.6 VBG Base Excess 5.9 Sodium 135.2 L Potassium 4.1 Chloride 91 L Carbon Dioxide 28 Anion Gap 16 BUN 18 Creatinine 0.89 Est GFR ( Amer) > 60 Glucose 224 H Lactic Acid Calcium 9.2 Total Bilirubin 0.6 AST 28 Alkaline Phosphatase 138 H C-Reactive Protein Total Protein 7.6 Albumin 4.3 Urine Color Urine Appearance Urine pH Ur Specific [place] Urine Protein Urine Glucose (UA) Urine Ketones Urine Blood Urine RBC (Auto) 07/20/19 07/20/19 07/20/19 11:34 11:34 14:29 WBC RBC Hgb Hct MCV MCH MCHC RDW Plt Count Seg Neutrophils % VBG pH VBG pCO2 VBG HCO3 VBG Base Excess Sodium Potassium Chloride Carbon Dioxide Anion Gap BUN Creatinine Est GFR ( Amer) Glucose Lactic Acid 4.6 H 3.2 H Calcium Total Bilirubin AST Alkaline Phosphatase C-Reactive Protein 59.1 H Total Protein Albumin Urine Color Urine Appearance Urine pH Ur Specific [place] Urine Protein Urine Glucose (UA) Urine Ketones Urine Blood Urine RBC (Auto) 07/20/19 15:25 WBC RBC Hgb Hct MCV MCH MCHC RDW Plt Count Seg Neutrophils % VBG pH VBG pCO2 VBG HCO3 VBG Base Excess Sodium Potassium Chloride Carbon Dioxide Anion Gap BUN Creatinine Est GFR ( Amer) Glucose Lactic Acid Calcium Total Bilirubin AST Alkaline Phosphatase C-Reactive Protein Total Protein Albumin Urine Color YELLOW Urine Appearance CLOUDY Urine pH 6.0 Ur Specific [place] 1.021 Urine Protein 30 H Urine Glucose (UA) NEGATIVE Urine Ketones NEGATIVE Urine Blood NEGATIVE Urine RBC (Auto) 8 Impressions: Knee X-Ray 07/20/19 12:03 IMPRESSION: Septic joint with surrounding soft tissue infection Assessment & Plan - Time Time Spent: 30 to 50 Minutes - Plan Summary Plan Summary: 58-year-old female who is status post bilateral total knee arthroplasties from July 01, [address] Sosa. Patient had been progressing well until 3 days ago when she experienced signs and symptoms of a septic joint in which she is admitted for today. Patient has a lot of comorbid conditions and is being co- managed by the hospitalist. Patient is on the proper antibiotic therapy at this point we will get her set up for a washout of her right knee for tomorrow morning. I also noted that an ESR and CRP were not in the chart and I will order that immediately.
[2019-07-20] MEDS: NORMAL SALINE 1000 ML 1,000 ML IV PRN (17:59)
[2019-07-20] MEDS: CEFEPIME 1 GM/D5W RTU 1 GM/50 ML RTUPB IV SCH (21:28)
[2019-07-20] MEDS: VANCOMYCIN HCL 750 MG in DEXTROSE 5%-WATER 250 ML IV SCH (23:38)
[2019-07-20] MEDS: HYDROMORPHONE HCL INJ/PF 2 MG/ML AMPULE IV PRN (23:45)
[2019-07-21] MEDS: NORMAL SALINE 1000 ML 1,000 ML IV PRN ×2 (07:03→20:09)
[2019-07-21 07:48] LABS: HEMATOCRIT 25.5 % (36.0-47.0); HEMOGLOBIN 8.5 g/dL (12.0-15.5); MEAN CORPUSCULAR HEMOGLOBIN 28.4 pg (27.0-33.4); MEAN CORPUSCULAR HGB CONC 33.2 g/dL (32.0-36.0); MEAN CORPUSCULAR VOLUME 85 fl (80-97); PLATELET COUNT 429 10^3/uL (150-450); RED BLOOD COUNT 2.98 10^6/uL (3.72-5.28); RED CELL DISTRIBUTION WIDTH 14.4 % (11.5-14.0); WHITE BLOOD COUNT 23.8 10^3/uL (4.0-10.5)
--- NOTE | 2019-07-21 07:55 | PDOC PROGRESS REPORT ---
Subjective Progress Note for:: 07/21/19 Subjective:: Patient lying in bed comfortably. She is status post bilateral total knee arthroplasty. Patient has significant pain in the right knee and noticed increased drainage over the past 24-48 hours however she has been having persistent drainage since the date of surgery according to the patient. Patient has noticed increased fever and chills over the past 24 hours. She was admitted for possible operative intervention. Reason For Visit: INFECTION RIGHT KNEE Physical Exam Vital Signs: Temp Pulse Resp BP Pulse Ox 98.8 F 94 18 121/64 93 07/21/19 03:57 07/21/19 03:57 07/21/19 03:57 07/21/19 03:57 07/21/19 03:57 Intake & Output 07/20/19 07/21/19 07/22/19 06:59 06:59 06:59 Intake Total 4060 250 Balance 4060 250 Weight 105.8 kg Musculoskeletal exam: PRESENT: other - Right knee: Swelling erythema throughout the right knee with active drainage. Pain with attempted range of motion. Swelling along the calf. No posterior calf tenderness. Intact plantarflexion/dorsiflexion. No streaking erythema. Results Laboratory Results: 07/20/19 07/20/19 07/20/19 11:34 11:34 11:34 WBC 30.4 H* RBC 3.64 L Hgb 10.0 L Hct 30.9 L MCV 85 MCH 27.6 MCHC 32.5 RDW 14.5 H Plt Count 621 H Seg Neutrophils % Not Reportable VBG pH 7.45 H VBG pCO2 44.8 VBG HCO3 30.6 VBG Base Excess 5.9 Sodium 135.2 L Potassium 4.1 Chloride 91 L Carbon Dioxide 28 Anion Gap 16 BUN 18 Creatinine 0.89 Est GFR ( Amer) > 60 Glucose 224 H Lactic Acid Calcium 9.2 Total Bilirubin 0.6 AST 28 Alkaline Phosphatase 138 H C-Reactive Protein Total Protein 7.6 Albumin 4.3 Urine Color Urine Appearance Urine pH Ur Specific [place] Urine Protein Urine Glucose (UA) Urine Ketones Urine Blood Urine RBC (Auto) 07/20/19 07/20/19 07/20/19 11:34 11:34 14:29 WBC RBC Hgb Hct MCV MCH MCHC RDW Plt Count Seg Neutrophils % VBG pH VBG pCO2 VBG HCO3 VBG Base Excess Sodium Potassium Chloride Carbon Dioxide Anion Gap BUN Creatinine Est GFR ( Amer) Glucose Lactic Acid 4.6 H 3.2 H Calcium Total Bilirubin AST Alkaline Phosphatase C-Reactive Protein 59.1 H Total Protein Albumin Urine Color Urine Appearance Urine pH Ur Specific [place] Urine Protein Urine Glucose (UA) Urine Ketones Urine Blood Urine RBC (Auto) 07/20/19 07/20/19 15:25 17:55 WBC RBC Hgb Hct MCV MCH MCHC RDW Plt Count Seg Neutrophils % VBG pH VBG pCO2 VBG HCO3 VBG Base Excess Sodium Potassium Chloride Carbon Dioxide Anion Gap BUN Creatinine Est GFR ( Amer) Glucose Lactic Acid 3.1 H Calcium Total Bilirubin AST Alkaline Phosphatase C-Reactive Protein Total Protein Albumin Urine Color YELLOW Urine Appearance CLOUDY Urine pH 6.0 Ur Specific [place] 1.021 Urine Protein 30 H Urine Glucose (UA) NEGATIVE Urine Ketones NEGATIVE Urine Blood NEGATIVE Urine RBC (Auto) 8 Impressions: Knee X-Ray 07/20/19 12:03 IMPRESSION: Septic joint with surrounding soft tissue infection Assessment & Plan - Diagnosis (1) Septic joint of right knee joint Qualifiers: Septic arthritis organism: due to unspecified organism Qualified Code(s): M00.9 - Pyogenic arthritis, unspecified Is this a current diagnosis for this admission?: Yes Plan: Patient is status post bilateral total knee arthroplasty and now has developed periprosthetic right knee infection. Today we discussed treatment options we will proceed with operative intervention which includes irrigation and debridement right knee with polyethylene exchange patient understands given the infection she is at high risk for possible need for further surgical intervention including explantation and placement of antibiotic spacer. We discussed details of procedure and postoperative expectations. Patient will require PICC line to 6 weeks of IV antibiotics pending culture results. Patient has verbalized understanding consented for surgical procedure. Risks include neurovascular risk, postoperative pain, postoperative stiffness, need for further surgical intervention. - Time Time Spent with patient: Less than 15 minutes
[2019-07-21 08:07] LABS: ANION GAP 7 (5-19); BLOOD UREA NITROGEN 13 mg/dL (7-20); CALCIUM 8.7 mg/dL (8.4-10.2); CARBON DIOXIDE 31 mmol/L (22-30); CHLORIDE 101 mmol/L (98-107); GLUCOSE 129 mg/dL (75-110); POTASSIUM 3.9 mmol/L (3.6-5.0)
[2019-07-21] MEDS: HYDROMORPHONE HCL INJ/PF 2 MG/ML AMPULE IV PRN (08:30)
[2019-07-21 08:33] LABS: ABSOLUTE LYMPHOCYTES# (MANUAL) 2.1 10^3/uL (0.5-4.7); ABSOLUTE MONOCYTES # (MANUAL) 0.5 10^3/uL (0.1-1.4); BASOPHILS % (MANUAL) 0 % (0-2); EOSINOPHILS % (MANUAL) 2 % (0-6); LYMPHOCYTES % (MANUAL) 9 % (13-45); MONOCYTES % (MANUAL) 2 % (3-13); SEGMENTED NEUTROPHILS % (MAN) 87 % (42-78); TOTAL CELLS COUNTED 100
[2019-07-21 08:34] LABS: ANISOCYTOSIS SLIGHT; PLATELET COMMENT ADEQUATE; POLYCHROMASIA SLIGHT; TOXIC GRANULATION SLIGHT
[2019-07-21] MEDS: KETOROLAC TROMETHAMINE INJ/PF 30 MG/1 ML SDV ONE ×2 (09:05→19:05)
[2019-07-21 09:41] LABS: PATH REVIEW PATHOLOGIST REVIEWED
[2019-07-21] MEDS: CEFEPIME 1 GM/D5W RTU 1 GM/50 ML RTUPB IV SCH ×2 (09:52→22:24)
[2019-07-21] MEDS: VANCOMYCIN HCL 750 MG in DEXTROSE 5%-WATER 250 ML IV SCH (11:42)
[2019-07-21] MEDS ORDERED: VECURONIUM BROMIDE INJ 10 MG VIAL IV ONE (12:00)
[2019-07-21] MEDS ORDERED: PHENYLEPHRINE HCL INJ/PF 10 MG/1 ML SDV ONE (12:00)
[2019-07-21] MEDS ORDERED: SUCCINYLCHOLINE CHLORIDE INJ 200 MG/10 ML VIAL ONE (12:00)
[2019-07-21] MEDS ORDERED: MIDAZOLAM 2 MG/2 ML INJ ONE (14:19)
[2019-07-21] MEDS ORDERED: FENTANYL CITRATE INJ/PF 100 MCG/2 ML AMPUL ONE ×3 (14:19→18:34)
[2019-07-21] MEDS ORDERED: KETAMINE HCL INJ 500 MG/10 ML VIAL ONE (14:19)
[2019-07-21] MEDS ORDERED: PROPOFOL INJ 200 MG/20 ML VIAL IV ONE (14:20)
[2019-07-21] MEDS ORDERED: ONDANSETRON HCL INJ/PF 4 MG/2 ML SDV ONE (15:54)
[2019-07-21] MEDS ORDERED: DEXAMETHASONE SOD PHOSPHATE INJ 4 MG/1 ML VIAL ONE (15:54)
[2019-07-21] MEDS ORDERED: TRANEXAMIC ACID INJ/PF 1,000 MG/10 ML SDV ONE (15:54)
[2019-07-21] MEDS ORDERED: MORPHINE SULFATE 10 MG/ML INJ ONE (15:55)
[2019-07-21] MEDS ORDERED: (PENDING PHARMACY ID) (Acetaminophen [Tylenol Extra Strength 500 Mg Tablet] 2 TAB) PO PRN (16:04)
[2019-07-21] MEDS ORDERED: CYCLOBENZAPRINE HCL 10 MG TABLET PO PRN (16:04)
[2019-07-21] MEDS ORDERED: ALBUTEROL SULFATE HFA (90 MCG/PUFF) 8 GM MDI (1 MDI/ER DISP) IH PRN (16:04)
--- NOTE | 2019-07-21 16:04 | PDOC PROGRESS REPORT ---
Subjective Progress Note for:: 07/21/19 Subjective:: This is a 58 year old female with a past medical history of hypothyroidism, depression, anxiety, hypertension, and COPD (only uses intermittent O2 at home) who is presenting with increasing right knee pain and drainage. Patient recently underwent bilateral knee replacement on 06/30/[address] Sosa and was discharged on 07/01. She was admitted for right septic arthritis. Hospitalist was consulted for medical comanagement for her other medical issues. No acute event overnight. She says her right knee pain is well controlled with current regimen. Denies chest pain or shortness of breath. Blood pressures running on the low normal and. She is scheduled for irrigation and debridement of the right knee by orthopedics later today. Reason For Visit: INFECTION RIGHT KNEE Physical Exam Vital Signs: Temp Pulse Resp BP Pulse Ox 100.1 F 107 H 20 131/71 H 90 L 07/21/19 08:00 07/21/19 08:00 07/21/19 08:00 07/21/19 08:00 07/21/19 08:00 Intake & Output 07/20/19 07/21/19 07/22/19 06:59 06:59 06:59 Intake Total 4060 250 Balance 4060 250 Weight 233 lb 3.985 oz General appearance: PRESENT: no acute distress, well-developed, well-nourished Head exam: PRESENT: atraumatic, normocephalic Eye exam: PRESENT: conjunctiva pink, EOMI, PERRLA. ABSENT: scleral icterus Ear exam: PRESENT: normal external ear exam Mouth exam: PRESENT: moist, tongue midline Neck exam: ABSENT: carotid bruit, JVD, lymphadenopathy, thyromegaly Respiratory exam: PRESENT: clear to auscultation mike. ABSENT: rales, rhonchi, wheezes Cardiovascular exam: PRESENT: RRR. ABSENT: diastolic murmur, rubs, systolic murmur Pulses: PRESENT: normal dorsalis pedis pul GI/Abdominal exam: PRESENT: normal bowel sounds, soft. ABSENT: distended, guarding, mass, organolmegaly, rebound, tenderness Rectal exam: PRESENT: deferred Extremities exam: PRESENT: tenderness - right knee erythema, swelling and tenderness. ABSENT: calf tenderness, clubbing, pedal edema Neurological exam: PRESENT: alert, awake, oriented to person, oriented to place, oriented to time, oriented to situation, CN II-XII grossly intact. ABSENT: motor sensory deficit Results Laboratory Results: 07/21/19 06:54 07/21/19 06:54 07/20/19 07/20/19 07/20/19 11:34 11:34 11:34 WBC 30.4 H* RBC 3.64 L Hgb 10.0 L Hct 30.9 L MCV 85 MCH 27.6 MCHC 32.5 RDW 14.5 H Plt Count 621 H Seg Neutrophils % Not Reportable VBG pH 7.45 H VBG pCO2 44.8 VBG HCO3 30.6 VBG Base Excess 5.9 Sodium 135.2 L Potassium 4.1 Chloride 91 L Carbon Dioxide 28 Anion Gap 16 BUN 18 Creatinine 0.89 Est GFR ( Amer) > 60 Glucose 224 H Lactic Acid Calcium 9.2 Total Bilirubin 0.6 AST 28 Alkaline Phosphatase 138 H C-Reactive Protein Total Protein 7.6 Albumin 4.3 Urine Color Urine Appearance Urine pH Ur Specific [place] Urine Protein Urine Glucose (UA) Urine Ketones Urine Blood Urine RBC (Auto) 07/20/19 07/20/19 07/20/19 11:34 11:34 14:29 WBC RBC Hgb Hct MCV MCH MCHC RDW Plt Count Seg Neutrophils % VBG pH VBG pCO2 VBG HCO3 VBG Base Excess Sodium Potassium Chloride Carbon Dioxide Anion Gap BUN Creatinine Est GFR ( Amer) Glucose Lactic Acid 4.6 H 3.2 H Calcium Total Bilirubin AST Alkaline Phosphatase C-Reactive Protein 59.1 H Total Protein Albumin Urine Color Urine Appearance Urine pH Ur Specific [place] Urine Protein Urine Glucose (UA) Urine Ketones Urine Blood Urine RBC (Auto) 07/20/19 07/20/19 07/21/19 15:25 17:55 06:54 WBC 23.8 H RBC 2.98 L Hgb 8.5 L Hct 25.5 L MCV 85 MCH 28.4 MCHC 33.2 RDW 14.4 H Plt Count 429 Seg Neutrophils % Not Reportable VBG pH VBG pCO2 VBG HCO3 VBG Base Excess Sodium Potassium Chloride Carbon Dioxide Anion Gap BUN Creatinine Est GFR ( Amer) Glucose Lactic Acid 3.1 H Calcium Total Bilirubin AST Alkaline Phosphatase C-Reactive Protein Total Protein Albumin Urine Color YELLOW Urine Appearance CLOUDY Urine pH 6.0 Ur Specific [place] 1.021 Urine Protein 30 H Urine Glucose (UA) NEGATIVE Urine Ketones NEGATIVE Urine Blood NEGATIVE Urine RBC (Auto) 8 07/21/19 06:54 WBC RBC Hgb Hct MCV MCH MCHC RDW Plt Count Seg Neutrophils % VBG pH VBG pCO2 VBG HCO3 VBG Base Excess Sodium 139.0 Potassium 3.9 Chloride 101 Carbon Dioxide 31 H Anion Gap 7 BUN 13 Creatinine 0.71 Est GFR ( Amer) > 60 Glucose 129 H Lactic Acid Calcium 8.7 Total Bilirubin AST Alkaline Phosphatase C-Reactive Protein Total Protein Albumin Urine Color Urine Appearance Urine pH Ur Specific [place] Urine Protein Urine Glucose (UA) Urine Ketones Urine Blood Urine RBC (Auto) Impressions: Knee X-Ray 07/20/19 12:03 IMPRESSION: Septic joint with surrounding soft tissue infection Assessment and Plan - Diagnosis (1) Septic joint of right knee joint Qualifiers: Septic arthritis organism: due to unspecified organism Qualified Code(s): M00.9 - Pyogenic arthritis, unspecified Is this a current diagnosis for this admission?: Yes Plan: She is scheduled for irrigation and debridement of the right knee by orthopedics later today. Continue IV antibiotics. (2) Sepsis Is this a current diagnosis for this admission?: Yes Plan: Secondary to septic right knee. IV antibiotics as mentioned. Lactic acid is elevated. Continue IV fluids. 07/21: Lactic acid trending down but still high. Continue to cycle lactic acid. Continue IV fluids. (3) COPD (chronic obstructive pulmonary disease) Is this a current diagnosis for this admission?: Yes Plan: Not in exacerbation. Breathing treatments as needed. Resume home inhalers. (4) Hypertension Is this a current diagnosis for this admission?: Yes Plan: Controlled. 07/21: Hold off on antihypertensives for now as blood pressure are running on the low normal end likely from ongoing sepsis. (5) Hypothyroidism Is this a current diagnosis for this admission?: Yes Plan: Stable. Resume Synthroid. - Time Time Spent with patient: 25-34 minutes
[2019-07-21] MEDS ORDERED: ACETAMINOPHEN 325 MG TABLET PO PRN ×2 (16:13→17:00)
[2019-07-21] MEDS ORDERED: ALBUTEROL SULFATE HFA (90 MCG/PUFF) 200 PUFF/8.5 GM MDI IH PRN (16:33)
[2019-07-21] MEDS ORDERED: BACITRACIN INJ 50,000 UNIT VIAL ONE (16:35)
[2019-07-21] MEDS ORDERED: ACETAMINOPHEN 1,000 MG/100 ML RTUPB IV ONE (16:38)
[2019-07-21] MEDS ORDERED: HYDROMORPHONE HCL INJ/PF 2 MG/ML AMPULE IV PRN (17:00)
[2019-07-21] MEDS ORDERED: BACITRACIN INJ 50,000 UNIT VIAL IR ONE (17:05)
[2019-07-21] MEDS ORDERED: DIPHENHYDRAMINE HCL 50 MG/ML VIAL IV PRN (17:07)
[2019-07-21] MEDS ORDERED: ONDANSETRON HCL INJ/PF 4 MG/2 ML SDV IV PRN (17:07)
[2019-07-21] MEDS ORDERED: PROMETHAZINE HCL INJ 25 MG/1 ML VIAL IV PRN ×2 (17:07)
[2019-07-21] MEDS ORDERED: MORPHINE SULFATE 10 MG/ML INJ IV PRN (17:07)
[2019-07-21] MEDS ORDERED: OXYCODONE-ACETAMINOPHEN 5-325 MG TABLET PO PRN ×2 (17:07)
[2019-07-21] MEDS ORDERED: MEPERIDINE HCL/PF INJ 25 MG/1 ML DISP.SYRIN IV PRN (17:07)
[2019-07-21] MEDS ORDERED: FENTANYL CITRATE INJ/PF 100 MCG/2 ML AMPUL IV PRN ×2 (17:07)
[2019-07-21] MEDS ORDERED: (PENDING PHARMACY ID) (Omeprazole [Prilosec] 20 MG) PO SCH (18:00)
[2019-07-21] MEDS ORDERED: (PENDING PHARMACY ID) (Rosuvastatin Calcium [Rosuvastatin Calcium] 10 MG) PO SCH (18:00)
[2019-07-21] MEDS ORDERED: PROMETHAZINE HCL INJ 25 MG/1 ML VIAL ONE (18:34)
[2019-07-21] MEDS: FENTANYL CITRATE INJ/PF 100 MCG/2 ML AMPUL IV PRN ×3 (18:35→20:19)
--- NOTE | 2019-07-21 18:53 | Operative Report ---
Operative Report DATE OF SURGERY: 07/21/19 PREOPERATIVE DIAGNOSIS: Right Total Knee Periprosthetic Infection POSTOPERATIVE DIAGNOSIS: Same OPERATION: I&D Right Total Knee Arthroplasty w/ Polyethylene Exchange SURGEON: HAILE CASTILLO ANESTHESIA: GA TISSUE REMOVED OR ALTERED: Aerobic/anaerobic/AFB/fungal culture COMPLICATIONS: None ESTIMATED BLOOD LOSS: <25cc PROCEDURE: Indication for above procedure: 58-year-old female who underwent bilateral total knee arthroplasty on 06/30/2019 patient had underwent bilateral total knee arthroplasties. She states her left knee did well but has had persistent drainage in her right knee. Patient noticed drainage progressively increased along with her pain. At that point she was sent to the emergency room where diagnosis of periprosthetic infection was confirmed on examination. I discussed treatment options with the patient including operative versus nonoperative intervention. Risks and benefits were explained patient verbalized understanding consented for surgical procedure. Procedure In Detail: Patient was seen and evaluated in the preoperative holding area. The right lower extremity was initialized and marked. Patient received IV antibiotics for bacterial prophylaxis. Patient was taken back to the operative room where transferred to the operative table and placed under general anesthesia. Once they were adequately anesthetized a nonsterile tourniquet was placed on the lower extremity. A surgical team debriefing was performed ensuring all instrumentation was available, the surgical procedure was discussed with possible concerns reviewed. The lower extremity was prepped with Betadine and draped in a sterile fashion. A timeout was done identifying correct patient, procedure and extremity everyone in attendance agree with this and verbalized no concerns. The extremity was elevated the tourniquet was inflated to 300 mmHg. Longitudinal skin incision was made utilizing previous incision. Sharp dissection was performed there was evidence of greater than 70% patellar tendon rupture from the tibial tuberosity. Copious amount of cloudy drainage was expressed. Skin flaps were developed medially and laterally. Additional capsulotomy was made utilizing previous approach. Any remnant Vicryl sutures were removed. Nonviable soft tissue was excised and sent to pathology for aerobic, anaerobic, AFB and fungal culture. Partial synovectomy was performed. Previous polyethylene was then removed. It was confirmed a 4 x 9 mm [place] polyethylene insert. Wound was copiously irrigated with 3 L of pulse lavage and bacitracin. It was then scrubbed with Betadine and peroxide special attention focused on cleaning the metal surfaces. Irrigation was then completed. Nonviable tissue was excised. A 4 x 9 mm [place] polyethylene component was then inserted. Patient had good stability with flexion and extension. Tourniquet was then deflated any peripheral bleeding was controlled with electro cautery. Wound was once again irrigated with normal saline. Patellar tendon was partially repaired with interrupted 0 PDS suture. A Jean drain was placed exiting lateral. Capsule was reapproximated with 0 PDS suture. Patient was placed range of motion to ensure adequate stability of capsular closure with no drainage from the joint. Subcutaneous tissue closed interrupted 3-0 Monocryl suture. Skin was closed with brianna. Acticoat and OpSite was applied with drain sponge. Soft dressing was then placed. Patient was fitted for a knee immobilizer. Sponge counts, instrument counts, needle counts were correct. Patient was then awoken from anesthesia. Transferred from the operating room table to the operating room stretcher. There was no intraoperative complications patient tolerated procedure well stable to PACU. Postoperative plan: Patient will begin Xarelto for DVT prophylaxis. We will continue vancomycin and Rocephin until cultures are finalized. Patient will require 6 weeks of IV antibiotics will also consult infectious disease. We will continue new immobilizer for ambulation over the next few weeks. Patient will follow-up with Dr. Sosa for definitive plan.
[2019-07-21] MEDS: ALBUTEROL SULFATE 0.083% NEB 2.5 MG/3 ML AMPUL NEB SCH (19:53)
[2019-07-21] MEDS: PANTOPRAZOLE SODIUM 20 MG TABLET.DR PO SCH (20:20)
[2019-07-21] MEDS ORDERED: FLUTICASONE/VILANTEROL 200-25 MCG/DOSE IH SCH (22:00)
[2019-07-21] MEDS: FLUTICASONE/VILANTEROL 200-25 MCG/DOSE IH SCH (22:23)
[2019-07-21] MEDS: ATORVASTATIN CALCIUM 20 MG TABLET PO SCH (22:25)
[2019-07-21] MEDS: PAROXETINE HCL 20 MG TABLET PO SCH (22:25)
[2019-07-22] MEDS: VANCOMYCIN HCL 750 MG in DEXTROSE 5%-WATER 250 ML IV SCH ×2 (00:10→12:42)
[2019-07-22 05:18] LABS: HEMATOCRIT 23.6 % (36.0-47.0); MEAN CORPUSCULAR HEMOGLOBIN 27.9 pg (27.0-33.4); MEAN CORPUSCULAR HGB CONC 32.9 g/dL (32.0-36.0); MEAN CORPUSCULAR VOLUME 85 fl (80-97); PLATELET COUNT 397 10^3/uL (150-450); RED BLOOD COUNT 2.78 10^6/uL (3.72-5.28); WHITE BLOOD COUNT 18.5 10^3/uL (4.0-10.5)
[2019-07-22 05:21] LABS: HEMOGLOBIN 7.8 g/dL (12.0-15.5)
[2019-07-22] MEDS: FENTANYL CITRATE INJ/PF 100 MCG/2 ML AMPUL IV PRN ×4 (05:32→22:15)
[2019-07-22] MEDS: LEVOTHYROXINE SODIUM 0.075 MG TABLET PO SCH (05:33)
[2019-07-22] MEDS: LEVOTHYROXINE SODIUM 0.1 MG TABLET PO SCH (05:34)
[2019-07-22 05:40] LABS: ANION GAP 8 (5-19); BLOOD UREA NITROGEN 9 mg/dL (7-20); CALCIUM 8.4 mg/dL (8.4-10.2); CARBON DIOXIDE 30 mmol/L (22-30); CHLORIDE 99 mmol/L (98-107); GLUCOSE 149 mg/dL (75-110); POTASSIUM 3.7 mmol/L (3.6-5.0)
[2019-07-22] MEDS ORDERED: (PENDING PHARMACY ID) (Levothyroxine Sodium [Synthroid] 175 MCG) PO SCH (08:00)
[2019-07-22] MEDS: OXYCODONE-ACETAMINOPHEN 5-325 MG TABLET PO PRN ×2 (08:00→23:36)
[2019-07-22] MEDS: ALBUTEROL SULFATE 0.083% NEB 2.5 MG/3 ML AMPUL NEB SCH ×4 (08:19→20:17)
[2019-07-22] MEDS: FLUTICASONE/VILANTEROL 200-25 MCG/DOSE IH SCH ×2 (09:58→22:16)
[2019-07-22] MEDS: LORATADINE 10 MG TABLET PO SCH (09:58)
[2019-07-22] MEDS: DIAZEPAM 5 MG TABLET PO SCH (09:58)
[2019-07-22] MEDS: GABAPENTIN 300 MG CAPSULE PO SCH (09:58)
[2019-07-22] MEDS: CEFEPIME 1 GM/D5W RTU 1 GM/50 ML RTUPB IV SCH ×2 (09:58→22:14)
--- NOTE | 2019-07-22 14:40 | PDOC PROGRESS REPORT ---
Subjective Progress Note for:: 07/22/19 Subjective:: Patient lying in bed comfortably. States pain is currently controlled. Denies fever or chills. Denies numbness or tingling. Was able to ambulate with the knee immobilizer. Reason For Visit: INFECTION RIGHT KNEE Physical Exam Vital Signs: Temp Pulse Resp BP Pulse Ox 98.6 F 96 18 131/66 H 90 L 07/22/19 12:00 07/22/19 12:06 07/22/19 12:06 07/22/19 12:00 07/22/19 12:06 Intake & Output 07/21/19 07/22/19 07/23/19 06:59 06:59 06:59 Intake Total 4060 4416 50 Output Total 140 Balance 4060 4276 50 Weight 105.8 kg 104 kg Musculoskeletal exam: PRESENT: other - Right knee: Dressing clean/dry/intact. Intact plantarflexion/dorsiflexion. No sensory deficits. Dorsalis pedis pulse 2+. No calf tenderness. Serosanguineous drainage from the drain. Results Laboratory Results: 07/22/19 04:44 07/22/19 04:44 07/21/19 07/22/19 07/22/19 21:03 04:44 04:44 WBC 18.5 H RBC 2.78 L Hgb 7.8 L Hct 23.6 L MCV 85 MCH 27.9 MCHC 32.9 RDW 15.0 H Plt Count 397 Sodium Potassium Chloride Carbon Dioxide Anion Gap BUN Creatinine Est GFR ( Amer) Glucose Lactic Acid 1.5 1.1 Calcium 07/22/19 04:44 WBC RBC Hgb Hct MCV MCH MCHC RDW Plt Count Sodium 136.7 L Potassium 3.7 Chloride 99 Carbon Dioxide 30 Anion Gap 8 BUN 9 Creatinine 0.64 Est GFR ( Amer) > 60 Glucose 149 H Lactic Acid Calcium 8.4 Impressions: Knee X-Ray 07/20/19 12:03 IMPRESSION: Septic joint with surrounding soft tissue infection Assessment & Plan - Diagnosis (1) Septic joint of right knee joint Qualifiers: Septic arthritis organism: due to unspecified organism Qualified Code(s): M00.9 - Pyogenic arthritis, unspecified Is this a current diagnosis for this admission?: Yes Plan: Postop day #1 status post I&D right total knee arthroplasty with polyethylene exchange. 1. Physical therapy weightbearing as tolerated right lower extremity with knee immobilizer 2. Continue drain until less than 15 cc 3. Preliminary cultures demonstrate methicillin sensitive staph aureus. Will consult infectious disease for IV antibiotic recommendations. Have ordered a PICC line. Optimistic patient may be orthopedically stable for discharge on 07/23/2019 if IV antibiotics is finalized. - Time Time Spent with patient: Less than 15 minutes
--- NOTE | 2019-07-22 15:53 | RADIOLOGY REPORT (SQ) ---
EXAM DESCRIPTION: PICC INSERTION; FLUORO/CV PLACEMENT; U/S GUIDE FOR VASCULAR ACCESS COMPLETED DATE/TIME: 07/22/2019 3:32 pm REASON FOR STUDY: IV Antibiotics; IV ABX COMPARISON: None. FLUOROSCOPY TIME: 0.09 minutes. 1 images saved to PACS. TECHNIQUE: Fluoroscopic and ultrasound guided PICC placement. LIMITATIONS: None. PROCEDURE: After written consent and assessment were obtained, the patient was brought into the fluo roscopy room and placed supine on the table. Ultrasound evaluation of potential access sites were per formed. After successfully identifying a patent left basilic vein, the left arm was prepped and drape d in a sterile fashion along with the ultrasound probe. The entry site was anesthetized with 1% lidoc corona. A 21 gauge 7 cm needle was advanced through the skin and into the basilic vein under live ultra sound guidance. An ultrasound image was saved to PACS confirming access site. A .018 guide wire was then inserted through the needle and into the venous system. The needle was then removed and an 11 b lade scalpel was used to make a 1cm skin incision. A 5 fr peel-away sheath was advanced over the wir e and into the venous system. A measurement was then made using the existing wire and live fluoroscop ic guidance. The wire was then removed and trimmed. The PICC was advanced through the peel-away sheat h and into the venous system. The peel-away sheath was removed and the catheter was adhered to the pa tients arm with a stat lock. The catheter was then aspirated and flushed and a sterile bandage was pl aced over the access site. A fluoroscopic spot image was saved to PACS confirming the catheter tip w ithin the superior vena cava. IMPRESSION: SUCCESSFUL PLACEMENT OF A 5 FR DUAL LUMEN 41 CM PICC IN THE LEFT BASILIC VEIN. COMMENT: Patient medication list reviewed: Yes- Quality ID# [id number]:Eligible professional attests to doc umenting in the medical record they obtained, updated, or reviewed the patient's current medications. . Quality ID 145: Final reports for procedures using fluoroscopy that document radiation exposure jewel elham, or exposure time and number of fluorographic images (if radiation exposure indices are not avail able) Quality ID #76: The patient was prepped and draped using maximum sterile barrier technique including cap, mask, sterile gown, sterile gloves, a large sterile sheet, hand hygiene, and 2% Chlorhexidine fo r cutaneous antisepsis. When ultrasound is used, sterile ultrasound techniques are followed requiring sterile gel and sterile probes. TECHNICAL DOCUMENTATION: JOB ID: [id number] [employer]- All Rights Reserved rev-11/30 Reading location - IP/workstation name: [email or web address]
[2019-07-22] MEDS ORDERED: VANCOMYCIN HCL 1,250 MG in DEXTROSE 5%-WATER 250 ML IV SCH (16:00)
[2019-07-22] MEDS ORDERED: NORMAL SALINE 10 ML SDV (AFTER EACH USE) IV PRN (16:00)
--- NOTE | 2019-07-22 16:57 | PDOC PROGRESS REPORT ---
Subjective Progress Note for:: 07/22/19 Reason For Visit: INFECTION RIGHT KNEE 07/22/2019 Patient admitted for right knee pain and drainage Physical Exam Vital Signs: Temp Pulse Resp BP Pulse Ox 98.6 F 96 18 131/66 H 90 L 07/22/19 12:00 07/22/19 12:06 07/22/19 12:06 07/22/19 12:00 07/22/19 12:06 Intake & Output 07/21/19 07/22/19 07/23/19 06:59 06:59 06:59 Intake Total 4060 4416 300 Output Total 140 Balance 4060 4276 300 Weight 105.8 kg 104 kg General appearance: PRESENT: no acute distress Respiratory exam: PRESENT: clear to auscultation mike. ABSENT: rales, rhonchi, wheezes Cardiovascular exam: PRESENT: RRR. ABSENT: diastolic murmur, rubs, systolic murmur Extremities exam: PRESENT: other - Deferred to orthopedics Neurological exam: PRESENT: alert, awake, oriented to person, oriented to place, oriented to time, oriented to situation, CN II-XII grossly intact. ABSENT: motor sensory deficit Psychiatric exam: PRESENT: appropriate affect, normal mood. ABSENT: homicidal ideation, suicidal ideation Results Laboratory Results: 07/22/19 04:44 07/22/19 04:44 07/21/19 07/22/19 07/22/19 21:03 04:44 04:44 WBC 18.5 H RBC 2.78 L Hgb 7.8 L Hct 23.6 L MCV 85 MCH 27.9 MCHC 32.9 RDW 15.0 H Plt Count 397 Sodium Potassium Chloride Carbon Dioxide Anion Gap BUN Creatinine Est GFR ( Amer) Glucose Lactic Acid 1.5 1.1 Calcium 07/22/19 04:44 WBC RBC Hgb Hct MCV MCH MCHC RDW Plt Count Sodium 136.7 L Potassium 3.7 Chloride 99 Carbon Dioxide 30 Anion Gap 8 BUN 9 Creatinine 0.64 Est GFR ( Amer) > 60 Glucose 149 H Lactic Acid Calcium 8.4 Impressions: Knee X-Ray 07/20/19 12:03 IMPRESSION: Septic joint with surrounding soft tissue infection Guidance Fluoroscopy 07/22/19 00:00 IMPRESSION: SUCCESSFUL PLACEMENT OF A 5 FR DUAL LUMEN 41 CM PICC IN THE LEFT BASILIC VEIN. Interventional Vascular Procedure 07/22/19 00:00 IMPRESSION: SUCCESSFUL PLACEMENT OF A 5 FR DUAL LUMEN 41 CM PICC IN THE LEFT BASILIC VEIN. PICC Line Insertion 07/22/19 00:00 IMPRESSION: SUCCESSFUL PLACEMENT OF A 5 FR DUAL LUMEN 41 CM PICC IN THE LEFT BASILIC VEIN. Assessment and Plan - Diagnosis (1) Elevated lactic acid level Is this a current diagnosis for this admission?: Yes (2) Right knee pain Qualifiers: Chronicity: acute Qualified Code(s): M25.561 - Pain in right knee Is this a current diagnosis for this admission?: Yes (3) Sepsis Is this a current diagnosis for this admission?: Yes - Plan Summary Summary: 07/22/2019 Temp this morning 99.9 since however gone down to 97.9 Patient did have a fever yesterday of 102.2 and on admission it was 103.0 Pulse running in the mid 90s, blood pressure 141/78 O2 sats between 90 and 94% on 3 L nasal cannula Admission her white count was 30,000 today is down to 18,500, chemistry grossly normal Wound culture growing out gram-negative rods however blood culture negative after 48 hours Patient currently on Maxipime day 3 and vancomycin day 2 Agree with infectious disease consult - Time Time Spent with patient: 25-34 minutes
[2019-07-22] MEDS: PANTOPRAZOLE SODIUM 20 MG TABLET.DR PO SCH (17:20)
[2019-07-22] MEDS: RIVAROXABAN 10 MG TABLET PO SCH (17:20)
[2019-07-22] MEDS: PAROXETINE HCL 20 MG TABLET PO SCH (22:16)
[2019-07-22] MEDS: ATORVASTATIN CALCIUM 20 MG TABLET PO SCH (22:16)
[2019-07-22] MEDS: NORMAL SALINE 1000 ML 1,000 ML IV PRN (22:17)
[2019-07-22] MEDS: NORMAL SALINE 10 ML SDV (SCHEDULED) IV SCH (22:59)
[2019-07-22] MEDS: VANCOMYCIN HCL 1,250 MG in DEXTROSE 5%-WATER 250 ML IV SCH (23:04)
[2019-07-23] MEDS: VANCOMYCIN HCL 1,250 MG in DEXTROSE 5%-WATER 250 ML IV SCH ×3 (05:39→22:24)
[2019-07-23] MEDS: LEVOTHYROXINE SODIUM 0.075 MG TABLET PO SCH (05:39)
[2019-07-23] MEDS: LEVOTHYROXINE SODIUM 0.1 MG TABLET PO SCH (05:39)
[2019-07-23] MEDS: OXYCODONE-ACETAMINOPHEN 5-325 MG TABLET PO PRN ×3 (06:01→22:24)
[2019-07-23 06:52] LABS: HEMATOCRIT 24.3 % (36.0-47.0); MEAN CORPUSCULAR HEMOGLOBIN 27.9 pg (27.0-33.4); MEAN CORPUSCULAR HGB CONC 32.8 g/dL (32.0-36.0); MEAN CORPUSCULAR VOLUME 85 fl (80-97); PLATELET COUNT 413 10^3/uL (150-450); RED BLOOD COUNT 2.85 10^6/uL (3.72-5.28); RED CELL DISTRIBUTION WIDTH 15.2 % (11.5-14.0); WHITE BLOOD COUNT 11.8 10^3/uL (4.0-10.5)
--- NOTE | 2019-07-23 07:07 | PDOC PROGRESS REPORT ---
Subjective Progress Note for:: 07/23/19 Subjective:: Patient lying in bed comfortably. Continues to have pain. Does improve with pain medication. Denies fever or chills. Denies numbness or tingling. Was able to ambulate with the knee immobilizer. Reason For Visit: INFECTION RIGHT KNEE Physical Exam Vital Signs: Temp Pulse Resp BP Pulse Ox 99.7 F 100 16 132/68 H 92 07/23/19 00:00 07/23/19 00:00 07/23/19 00:00 07/23/19 00:00 07/23/19 00:00 Intake & Output 07/21/19 07/22/19 07/23/19 06:59 06:59 06:59 Intake Total 4060 5416 2176 Output Total 140 1950 Balance 4060 5276 226 Weight 105.8 kg 104 kg 108.5 kg Musculoskeletal exam: PRESENT: other - Right knee: Dressing change today. Dressing clean/dry/intact. Moderate swelling. No calf tenderness. Intact plantarflexion/dorsiflexion. Serosanguineous drainage expressed from the drain. Results Laboratory Results: 07/22/19 04:44 Impressions: Knee X-Ray 07/20/19 12:03 IMPRESSION: Septic joint with surrounding soft tissue infection Guidance Fluoroscopy 07/22/19 00:00 IMPRESSION: SUCCESSFUL PLACEMENT OF A 5 FR DUAL LUMEN 41 CM PICC IN THE LEFT BASILIC VEIN. Interventional Vascular Procedure 07/22/19 00:00 IMPRESSION: SUCCESSFUL PLACEMENT OF A 5 FR DUAL LUMEN 41 CM PICC IN THE LEFT BASILIC VEIN. PICC Line Insertion 07/22/19 00:00 IMPRESSION: SUCCESSFUL PLACEMENT OF A 5 FR DUAL LUMEN 41 CM PICC IN THE LEFT BASILIC VEIN. Assessment & Plan - Diagnosis (1) Septic joint of right knee joint Qualifiers: Septic arthritis organism: due to unspecified organism Qualified Code(s): M00.9 - Pyogenic arthritis, unspecified Is this a current diagnosis for this admission?: Yes Plan: Postop day #1 status post I&D right total knee arthroplasty with polyethylene exchange. 1. Physical therapy weightbearing as tolerated right lower extremity with knee immobilizer 2. Continue drain until less than 20 cc 3. Preliminary cultures demonstrate methicillin sensitive staph aureus. Will consult infectious disease for IV antibiotic recommendations. Patient has received PICC line. Once final recommendations from infectious disease are obtained patient will be stable for discharge with IV antibiotics. Plan is to follow-up with Dr. Sosa next week for further monitoring of patient's wound healing. - Time Time Spent with patient: Less than 15 minutes
[2019-07-23] MEDS: ALBUTEROL SULFATE 0.083% NEB 2.5 MG/3 ML AMPUL NEB SCH ×4 (07:37→19:40)
[2019-07-23] MEDS: NORMAL SALINE 1000 ML 1,000 ML IV PRN ×2 (09:22→22:32)
[2019-07-23] MEDS: GABAPENTIN 300 MG CAPSULE PO SCH (09:25)
[2019-07-23] MEDS: LORATADINE 10 MG TABLET PO SCH (09:25)
[2019-07-23] MEDS: FLUTICASONE/VILANTEROL 200-25 MCG/DOSE IH SCH ×2 (09:26→22:25)
[2019-07-23] MEDS: NORMAL SALINE 10 ML SDV (SCHEDULED) IV SCH ×2 (09:26→22:26)
[2019-07-23] MEDS: CEFEPIME 1 GM/D5W RTU 1 GM/50 ML RTUPB IV SCH ×2 (09:26→22:25)
[2019-07-23] MEDS: DIAZEPAM 5 MG TABLET PO SCH (09:31)
--- NOTE | 2019-07-23 14:55 | PDOC PROGRESS REPORT ---
Subjective Progress Note for:: 07/23/19 Reason For Visit: INFECTION RIGHT KNEE 07/23/2019 Patient admitted for septic right knee Physical Exam Vital Signs: Temp Pulse Resp BP Pulse Ox 98.8 F 95 14 140/74 H 93 07/23/19 12:10 07/23/19 12:15 07/23/19 12:15 07/23/19 12:10 07/23/19 12:15 Intake & Output 07/22/19 07/23/19 07/24/19 06:59 06:59 06:59 Intake Total 5416 2176 1660 Output Total 140 1950 25 Balance 5276 226 1635 Weight 104 kg 108.5 kg General appearance: PRESENT: no acute distress, other - Patient sitting up in bed complaining about the food Respiratory exam: PRESENT: clear to auscultation mike. ABSENT: rales, rhonchi, wheezes Cardiovascular exam: PRESENT: RRR. ABSENT: diastolic murmur, rubs, systolic murmur Extremities exam: PRESENT: other - Deferred to orthopedics Neurological exam: PRESENT: alert, awake, oriented to person, oriented to place, oriented to time, oriented to situation, CN II-XII grossly intact. ABSENT: motor sensory deficit Psychiatric exam: PRESENT: appropriate affect, normal mood. ABSENT: homicidal ideation, suicidal ideation Results Laboratory Results: 07/23/19 06:25 07/22/19 04:44 07/23/19 06:25 WBC 11.8 H RBC 2.85 L Hgb 8.0 L Hct 24.3 L MCV 85 MCH 27.9 MCHC 32.8 RDW 15.2 H Plt Count 413 Impressions: Knee X-Ray 07/20/19 12:03 IMPRESSION: Septic joint with surrounding soft tissue infection Guidance Fluoroscopy 07/22/19 00:00 IMPRESSION: SUCCESSFUL PLACEMENT OF A 5 FR DUAL LUMEN 41 CM PICC IN THE LEFT BASILIC VEIN. Interventional Vascular Procedure 07/22/19 00:00 IMPRESSION: SUCCESSFUL PLACEMENT OF A 5 FR DUAL LUMEN 41 CM PICC IN THE LEFT BASILIC VEIN. PICC Line Insertion 07/22/19 00:00 IMPRESSION: SUCCESSFUL PLACEMENT OF A 5 FR DUAL LUMEN 41 CM PICC IN THE LEFT BASILIC VEIN. Assessment and Plan - Diagnosis (1) Elevated lactic acid level Is this a current diagnosis for this admission?: Yes (2) Right knee pain Qualifiers: Chronicity: acute Qualified Code(s): M25.561 - Pain in right knee Is this a current diagnosis for this admission?: Yes (3) Sepsis Is this a current diagnosis for this admission?: Yes - Plan Summary Summary: 07/22/2019 Temp this morning 99.9 since however gone down to 97.9 Patient did have a fever yesterday of 102.2 and on admission it was 103.0 Pulse running in the mid 90s, blood pressure 141/78 O2 sats between 90 and 94% on 3 L nasal cannula Admission her white count was 30,000 today is down to 18,500, chemistry grossly normal Wound culture growing out gram-negative rods however blood culture negative after 48 hours Patient currently on Maxipime day 3 and vancomycin day 2 Agree with infectious disease consult 07/23/2019 Patient has been afebrile now x48 hours Infectious disease consult pending Antibiotic treatment as above note White blood cell count continues to decrease today is 11,800 Patient seen by physical therapy yesterday for gait assistance and baseline evaluation - Time Time Spent with patient: 15-24 minutes
[2019-07-23] MEDS: PANTOPRAZOLE SODIUM 20 MG TABLET.DR PO SCH (17:08)
[2019-07-23] MEDS: RIVAROXABAN 10 MG TABLET PO SCH (17:08)
--- NOTE | 2019-07-23 22:13 | Progress Note ---
Provider Note Provider Note: [facility] Telephone Advice Consultation Chart reviewed. This is a 58-year-old woman with COPD, hypertension, GERD, r ecurrent pneumonia, hypothyroidism who on 07/01/19 had bilateral knee replacement. She was doing well until 07/17 that she felt like a suture came loose on the right knee. After that she started experiencing severe pain and drainage from the surgical site. She was evaluated and found septic on admi ssion with a WBC of 30k, elevated lactic acid, reactive thrombocytosis, glucose elevated as well. Her CRP was 59. She had fever and tachycardia. She was taken to the OR and was found with periprosthetic infection and patellar tendon rupture. She had I&D with poly exchange and patellar tendon repair. Tissue cultures positive for MSSA, Pantoea agglomerans and Clostridium spp. She has been on cefepime and vancomycin. PMH: COPD HTN Recurrent PNA Arthritis Bipolar Disorder GERD PMH: BL Knee arthroplasty 06/2019 Allergies: No Known Allergies Allergy (Verified 07/20/19 11:16) Medications: Albuterol Sulfate [Ventolin 0.083% Neb 2.5 mg/3 mL Ampul] 1 vial NEB QID 07/21/15 Amlodipine Besylate 10 mg PO QAM 07/21/15 Budesonide/Formoterol Fumarate [Symbicort HFA 160-4.5 mcg Inhaler 6 gm] 2 puff IH Q12 07/21/15 Cyclobenzaprine HCl [Flexeril 10 mg Tablet] 10 mg PO BIDP PRN 07/21/15 Diazepam [Valium 5 mg Tablet] 5 mg PO DAILY 07/21/15 Diclofenac Sodium [Voltaren] 75 mg PO BID 07/21/15 Levothyroxine Sodium [Synthroid] 175 mcg PO QAM 07/21/15 Omeprazole [Prilosec] 20 mg PO QPM 07/21/15 Paroxetine HCl [Paxil] 20 mg PO QHS 07/21/15 Loratadine [Claritin 10 mg Tablet] 10 mg PO DAILY 01/08/18 Rosuvastatin Calcium 10 mg PO QPM 01/08/18 Gabapentin 600 mg PO DAILY 06/16/19 Acetaminophen [Tylenol Extra Strength 500 mg Tablet] 2 tab PO Q4HP PRN 07/21/19 Albuterol Sulfate [Ventolin Hfa 8 gm Mdi (1 Mdi/ER Disp)] 2 puff IH Q4HP PRN 07/21/19 Vital Signs: Temp Pulse Resp BP Pulse Ox 99.3 F 92 16 129/66 H 97 07/23/19 16:07 07/23/19 19:40 07/23/19 19:40 07/23/19 16:07 07/23/19 19:40 Intake & Output 07/22/19 07/23/19 07/24/19 06:59 06:59 06:59 Intake Total 5416 2176 2510 Output Total 140 1950 25 Balance 5276 226 2485 Weight 104 kg 108.5 kg Weight/Height Weight 108.5 kg Height 5 ft 4 in Laboratories: 07/23/19 06:25 07/22/19 04:44 MCV 85 fl (80-97) 07/23/19 06:25 MCH 27.9 pg (27.0-33.4) 07/23/19 06:25 MCHC 32.8 g/dL (32.0-36.0) 07/23/19 06:25 RDW 15.2 % (11.5-14.0) H 07/23/19 06:25 Seg Neutrophils % Not Reportable 07/21/19 06:54 VBG pH 7.45 (7.30-7.42) H 07/20/19 11:34 VBG pCO2 44.8 mmHg (35-63) 07/20/19 11:34 VBG HCO3 30.6 mmol/L (20-32) 07/20/19 11:34 VBG Base Excess 5.9 mmol/L 07/20/19 11:34 Chloride 99 mmol/L (98-107) 07/22/19 04:44 Carbon Dioxide 30 mmol/L (22-30) 07/22/19 04:44 Anion Gap 8 (5-19) 07/22/19 04:44 Est GFR ( Amer) > 60 (>60) 07/22/19 04:44 Glucose 149 mg/dL (75-110) H 07/22/19 04:44 Lactic Acid 1.1 mmol/L (0.7-2.1) 07/22/19 04:44 Calcium 8.4 mg/dL (8.4-10.2) 07/22/19 04:44 Total Bilirubin 0.6 mg/dL (0.2-1.3) 07/20/19 11:34 AST 28 U/L (14-36) 07/20/19 11:34 Alkaline Phosphatase 138 U/L (38-126) H 07/20/19 11:34 C-Reactive Protein 59.1 mg/L (<10.0) H 07/20/19 11:34 Total Protein 7.6 g/dL (6.3-8.2) 07/20/19 11:34 Albumin 4.3 g/dL (3.5-5.0) 07/20/19 11:34 Urine Color YELLOW 07/20/19 15:25 Urine Appearance CLOUDY 07/20/19 15:25 Urine pH 6.0 (5.0-9.0) 07/20/19 15:25 Ur Specific Cost 1.021 07/20/19 15:25 Urine Protein 30 mg/dL (NEGATIVE) H 07/20/19 15:25 Urine Glucose (UA) NEGATIVE mg/dL (NEGATIVE) 07/20/19 15:25 Urine Ketones NEGATIVE mg/dL (NEGATIVE) 07/20/19 15:25 Urine Blood NEGATIVE (NEGATIVE) 07/20/19 15:25 Urine RBC (Auto) 8 /HPF 07/20/19 15:25 Microbiology: 07/20/19 11:55 Knee - Post Surgical Site Gram Stain - Final 07/20/19 11:55 Knee - Post Surgical Site Wound Culture - Final Staphylococcus Aureus Pantoea Agglomerans Clostridium Sp.not Perfringens Blood culture 07/20/19 NGTD Tissue Cultures: 07/20/19 MSSA, Pantoea agglomerans, Clostridium spp 07/21/19 GPC, GNR Radiology: Knee X-Ray 07/20/19 12:03 IMPRESSION: Septic joint with surrounding soft tissue infection Guidance Fluoroscopy 07/22/19 00:00 IMPRESSION: SUCCESSFUL PLACEMENT OF A 5 FR DUAL LUMEN 41 CM PICC IN THE LEFT BASILIC VEIN. Interventional Vascular Procedure 07/22/19 00:00 IMPRESSION: SUCCESSFUL PLACEMENT OF A 5 FR DUAL LUMEN 41 CM PICC IN THE LEFT BASILIC VEIN. PICC Line Insertion 07/22/19 00:00 IMPRESSION: SUCCESSFUL PLACEMENT OF A 5 FR DUAL LUMEN 41 CM PICC IN THE LEFT BASILIC VEIN. 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 She is s/p I&D with poly exchange considering this was a surgery from <1 month. She has improved clinically, afebrile now. Leukocytosis significantly improved. She will need 6 weeks of antibiotic therapy. She will benefit from adding rifampin for biofilm if no significant drug-drug interactions (might need to increase levothyroxine dose). Zosyn will cover all organisms 13.5 g continuous infusion or divided every 8 hrs prolonged infusion + rifampin 600 mg po daily If zosyn not possible, ceftriaxone 2g IV daily + metronidazole 500 mg BID + rifampin 600 mg po daily. The latter is LESS preferred as there is toxicity associated with prolonged use of metronidazole (as peripheral neuropathy which might be irreversible). Please monitor CBC, CMP, ESR, CRP weekly while on antibiotics and remove PICC line at completion of therapy. Please call if questions or updates from cultures. Sisi Mccracken MD [facility] ID [phone]
[2019-07-23] MEDS: ATORVASTATIN CALCIUM 20 MG TABLET PO SCH (22:23)
[2019-07-23] MEDS: PAROXETINE HCL 20 MG TABLET PO SCH (22:28)
[2019-07-24] MEDS: OXYCODONE-ACETAMINOPHEN 5-325 MG TABLET PO PRN ×3 (06:17→19:47)
[2019-07-24] MEDS: LEVOTHYROXINE SODIUM 0.1 MG TABLET PO SCH (06:17)
[2019-07-24] MEDS: VANCOMYCIN HCL 1,250 MG in DEXTROSE 5%-WATER 250 ML IV SCH (06:18)
[2019-07-24] MEDS: LEVOTHYROXINE SODIUM 0.075 MG TABLET PO SCH (06:18)
[2019-07-24 06:31] LABS: HEMATOCRIT 26.5 % (36.0-47.0); HEMOGLOBIN 8.7 g/dL (12.0-15.5); MEAN CORPUSCULAR HEMOGLOBIN 27.7 pg (27.0-33.4); MEAN CORPUSCULAR HGB CONC 32.9 g/dL (32.0-36.0); MEAN CORPUSCULAR VOLUME 84 fl (80-97); PLATELET COUNT 493 10^3/uL (150-450); RED BLOOD COUNT 3.15 10^6/uL (3.72-5.28); RED CELL DISTRIBUTION WIDTH 15.6 % (11.5-14.0); WHITE BLOOD COUNT 13.9 10^3/uL (4.0-10.5)
[2019-07-24] MEDS: ALBUTEROL SULFATE 0.083% NEB 2.5 MG/3 ML AMPUL NEB SCH ×4 (07:24→20:12)
[2019-07-24 08:10] LABS: VANCOMYCIN,TROUGH 16.3 ug/mL (5.0-20.0)
[2019-07-24] MEDS: CEFEPIME 1 GM/D5W RTU 1 GM/50 ML RTUPB IV SCH (10:24)
[2019-07-24] MEDS: GABAPENTIN 300 MG CAPSULE PO SCH (10:24)
[2019-07-24] MEDS: DIAZEPAM 5 MG TABLET PO SCH (10:24)
[2019-07-24] MEDS: LORATADINE 10 MG TABLET PO SCH (10:24)
[2019-07-24] MEDS: FLUTICASONE/VILANTEROL 200-25 MCG/DOSE IH SCH ×2 (10:24→21:52)
[2019-07-24] MEDS: NORMAL SALINE 10 ML SDV (SCHEDULED) IV SCH ×2 (10:25→21:52)
--- NOTE | 2019-07-24 10:53 | PDOC PROGRESS REPORT ---
Subjective Progress Note for:: 07/24/19 Reason For Visit: INFECTION RIGHT KNEE 07/24/2019 Septic right knee Physical Exam Vital Signs: Temp Pulse Resp BP Pulse Ox 102.9 F H 89 18 162/78 H 92 07/23/19 23:08 07/24/19 07:26 07/24/19 07:26 07/23/19 23:08 07/24/19 07:26 Intake & Output 07/23/19 07/24/19 07/25/19 06:59 06:59 06:59 Intake Total 2176 3810 250 Output Total 1950 45 Balance 226 3765 250 Weight 108.5 kg 109.7 kg General appearance: PRESENT: no acute distress, other - Patient complaining about the nurse she had last night taking care of her Respiratory exam: PRESENT: clear to auscultation mike. ABSENT: rales, rhonchi, wheezes Cardiovascular exam: PRESENT: RRR. ABSENT: diastolic murmur, rubs, systolic murmur Extremities exam: PRESENT: other - Light redness about the right knee normal swelling, slight drainage Neurological exam: PRESENT: alert, awake, oriented to person, oriented to place, oriented to time, oriented to situation, CN II-XII grossly intact. ABSENT: motor sensory deficit Psychiatric exam: PRESENT: appropriate affect, normal mood. ABSENT: homicidal ideation, suicidal ideation Results Laboratory Results: 07/24/19 05:55 07/22/19 04:44 07/24/19 05:55 WBC 13.9 H RBC 3.15 L Hgb 8.7 L Hct 26.5 L MCV 84 MCH 27.7 MCHC 32.9 RDW 15.6 H Plt Count 493 H 07/20/19 11:55 Knee - Post Surgical Site Gram Stain - Final 07/20/19 11:55 Knee - Post Surgical Site Wound Culture - Final Staphylococcus Aureus Pantoea Agglomerans Clostridium Sp.not Perfringens Impressions: Knee X-Ray 07/20/19 12:03 IMPRESSION: Septic joint with surrounding soft tissue infection Guidance Fluoroscopy 07/22/19 00:00 IMPRESSION: SUCCESSFUL PLACEMENT OF A 5 FR DUAL LUMEN 41 CM PICC IN THE LEFT BASILIC VEIN. Interventional Vascular Procedure 07/22/19 00:00 IMPRESSION: SUCCESSFUL PLACEMENT OF A 5 FR DUAL LUMEN 41 CM PICC IN THE LEFT BASILIC VEIN. PICC Line Insertion 07/22/19 00:00 IMPRESSION: SUCCESSFUL PLACEMENT OF A 5 FR DUAL LUMEN 41 CM PICC IN THE LEFT BASILIC VEIN. Assessment and Plan - Diagnosis (1) Elevated lactic acid level Is this a current diagnosis for this admission?: Yes (2) Right knee pain Qualifiers: Chronicity: acute Qualified Code(s): M25.561 - Pain in right knee Is this a current diagnosis for this admission?: Yes (3) Sepsis Is this a current diagnosis for this admission?: Yes - Plan Summary Summary: 07/22/2019 Temp this morning 99.9 since however gone down to 97.9 Patient did have a fever yesterday of 102.2 and on admission it was 103.0 Pulse running in the mid 90s, blood pressure 141/78 O2 sats between 90 and 94% on 3 L nasal cannula Admission her white count was 30,000 today is down to 18,500, chemistry grossly normal Wound culture growing out gram-negative rods however blood culture negative after 48 hours Patient currently on Maxipime day 3 and vancomycin day 2 Agree with infectious disease consult 07/23/2019 Patient has been afebrile now x48 hours Infectious disease consult pending Antibiotic treatment as above note White blood cell count continues to decrease today is 11,800 Patient seen by physical therapy yesterday for gait assistance and baseline evaluation 07/24/2019 Per infectious disease will discharge patient tomorrow on Zosyn 3.375 mg IV every 8 hours x4 weeks Also rifampin 600 mg p.o. daily x4 weeks. Changing her antibiotic schedule today have home health check weekly CBC, CMP, ESR, CRP Stop date for antibiotics will be September 04, total of 6 weeks IV antibiotics - Time Time Spent with patient: 25-34 minutes
[2019-07-24] MEDS: NORMAL SALINE 1000 ML 1,000 ML IV PRN (14:37)
[2019-07-24] MEDS: PIPERACILLIN SODIUM/TAZOBACTAM 3.375 GM in NORMAL SALINE 100 ML IV SCH ×2 (14:37→21:51)
[2019-07-24] MEDS: RIVAROXABAN 10 MG TABLET PO SCH (17:04)
[2019-07-24] MEDS: PANTOPRAZOLE SODIUM 20 MG TABLET.DR PO SCH (17:04)
[2019-07-24] MEDS ORDERED: MAGNESIUM HYDROXIDE SUSP 30 ML UDCUP PO PRN (21:26)
[2019-07-24] MEDS: PAROXETINE HCL 20 MG TABLET PO SCH (21:52)
[2019-07-24] MEDS: ATORVASTATIN CALCIUM 20 MG TABLET PO SCH (21:52)
[2019-07-25] MEDS: OXYCODONE-ACETAMINOPHEN 5-325 MG TABLET PO PRN (04:02)
[2019-07-25] MEDS: PIPERACILLIN SODIUM/TAZOBACTAM 3.375 GM in NORMAL SALINE 100 ML IV SCH (05:46)
[2019-07-25] MEDS: NORMAL SALINE 1000 ML 1,000 ML IV PRN (05:47)
[2019-07-25] MEDS: LEVOTHYROXINE SODIUM 0.075 MG TABLET PO SCH (05:48)
[2019-07-25] MEDS: LEVOTHYROXINE SODIUM 0.1 MG TABLET PO SCH (05:48)
[2019-07-25] MEDS: ALBUTEROL SULFATE 0.083% NEB 2.5 MG/3 ML AMPUL NEB SCH ×2 (07:50→11:49)
[2019-07-25] MEDS ORDERED: RIFAMPIN 300 MG CAPSULE PO SCH (08:00)
--- NOTE | 2019-07-25 08:00 | PDOC DISCHARGE SUMMARY ---
Impression - Admit/DC Date/PCP Admission Date/Primary Care Provider: 07/20/19 15:41 BETH GREEN MD Discharge Date: 07/25/19 - Discharge Diagnosis (1) Septic joint of right knee joint Is this a current diagnosis for this admission?: Yes - Assessment Summary: 07/22/2019 Temp this morning 99.9 since however gone down to 97.9 Patient did have a fever yesterday of 102.2 and on admission it was 103.0 Pulse running in the mid 90s, blood pressure 141/78 O2 sats between 90 and 94% on 3 L nasal cannula Admission her white count was 30,000 today is down to 18,500, chemistry grossly normal Wound culture growing out gram-negative rods however blood culture negative after 48 hours Patient currently on Maxipime day 3 and vancomycin day 2 Agree with infectious disease consult 07/23/2019 Patient has been afebrile now x48 hours Infectious disease consult pending Antibiotic treatment as above note White blood cell count continues to decrease today is 11,800 Patient seen by physical therapy yesterday for gait assistance and baseline evaluation 07/24/2019 Per infectious disease will discharge patient tomorrow on Zosyn 3.375 mg IV every 8 hours x4 weeks Also rifampin 600 mg p.o. daily x4 weeks. Changing her antibiotic schedule today have home health check weekly CBC, CMP, ESR, CRP Stop date for antibiotics will be September 04, total of 6 weeks IV antibiotics - Additional Information Resuscitation Status: Full Code Discharge Diet: As Tolerated Discharge Activity: Activity As Tolerated, No Driving, No Lifting Over 10 Pounds, No Lifting/Push/Pulling, Walk Frequently Referrals: [facility] [Other] KELTON SOSA MD [ACTIVE STAFF] - 07/31/19 9:45 am (07/21 S/P RIGHT TOTAL KNEE FOLLOW UP WITH MARGARET CASTILLO) Prescriptions: Oxycodone HCl/Acetaminophen [Percocet 7.5-325 mg Tablet] 1 tab PO Q6 PRN #25 tab PRN Reason: Home Medications: Albuterol Sulfate [Ventolin 0.083% Neb 2.5 mg/3 mL Ampul] 1 vial NEB QID 07/21/15 Amlodipine Besylate 10 mg PO QAM 07/21/15 Budesonide/Formoterol Fumarate [Symbicort HFA 160-4.5 mcg Inhaler 6 gm] 2 puff IH Q12 07/21/15 Cyclobenzaprine HCl [Flexeril 10 mg Tablet] 10 mg PO BIDP PRN 07/21/15 Diazepam [Valium 5 mg Tablet] 5 mg PO DAILY 07/21/15 Diclofenac Sodium [Voltaren] 75 mg PO BID 07/21/15 Levothyroxine Sodium [Synthroid] 175 mcg PO QAM 07/21/15 Omeprazole [Prilosec] 20 mg PO QPM 07/21/15 Paroxetine HCl [Paxil] 20 mg PO QHS 07/21/15 Loratadine [Claritin 10 mg Tablet] 10 mg PO DAILY 01/08/18 Rosuvastatin Calcium 10 mg PO QPM 01/08/18 Gabapentin 600 mg PO DAILY 06/16/19 Acetaminophen [Tylenol Extra Strength 500 mg Tablet] 2 tab PO Q4HP PRN 07/21/19 Albuterol Sulfate [Ventolin Hfa 8 gm Mdi (1 Mdi/ER Disp)] 2 puff IH Q4HP PRN 07/21/19 Oxycodone HCl/Acetaminophen [Percocet 7.5-325 mg Tablet] 1 tab PO Q6 PRN #25 tab 07/21/19 History of Present Illiness History of Present Illness: ROSALBA CORTEZ is a 58 year old female who underwent bilateral total knee arthroplasty. Patient progressed appropriately with her left knee but continued to have persistent drainage of the right knee. Drainage continues to worsen when patient developed fever and chills. She would present to the emergency room with signs and symptoms of periprosthetic infection. Patient was admitted to the orthopedic service for irrigation and debridement. Hospital Course Hospital Course: On 07/21/2019 patient underwent irrigation and debridement right total knee arthroplasty with polyethylene exchange and repair of the patellar tendon. Postop day #1 patient was doing well pain was controlled. She still has some residual fevers but they continue to improve. She began physical therapy and was able to ambulate with a knee immobilizer. Patient initial white count was 30 which decreased to 13. Patient had no fever or chills for over 24 hours. Infectious disease was consulted and recommended Zosyn and rifampin for patient's polymicrobial infection. Drain was discharged on 07/24/2019 with drainage less than 25 cc. On 07/25/2019 patient was doing well denied fever chills or sweats. Pain was controlled at that point decision was made to procee d with discharge home with IV Zosyn and p.o. rifampin as per infectious disease regimen Physical Exam Vital Signs: Temp Pulse Resp BP Pulse Ox 98.6 F 98 18 132/68 H 91 L 07/24/19 22:27 07/24/19 22:27 07/24/19 22:27 07/24/19 22:27 07/24/19 22:27 Intake & Output 07/24/19 07/25/19 07/26/19 06:59 06:59 06:59 Intake Total 3810 4104 Output Total 45 1200 Balance 3765 2904 Weight 109.7 kg 109.6 kg General appearance: PRESENT: no acute distress, well-developed, well-nourished Head exam: PRESENT: atraumatic, normocephalic Eye exam: PRESENT: conjunctiva pink, EOMI, PERRLA. ABSENT: scleral icterus Ear exam: PRESENT: normal external ear exam Mouth exam: PRESENT: moist, tongue midline Neck exam: ABSENT: carotid bruit, JVD, lymphadenopathy, thyromegaly Respiratory exam: PRESENT: clear to auscultation mike. ABSENT: rales, rhonchi, wheezes Cardiovascular exam: PRESENT: RRR. ABSENT: diastolic murmur, rubs, systolic murmur Pulses: PRESENT: normal dorsalis pedis pul Vascular exam: PRESENT: normal capillary refill GI/Abdominal exam: PRESENT: normal bowel sounds, soft. ABSENT: distended, guarding, mass, organolmegaly, rebound, tenderness Rectal exam: PRESENT: deferred Extremities exam: PRESENT: full ROM. ABSENT: calf tenderness, clubbing, pedal edema Musculoskeletal exam: PRESENT: other - Right knee: Acticoat dressing intact with small amount of bloody shadowing along the inferior aspect. Erythema and swelling notably improved. No calf tenderness. Intact plantarflexion/dorsiflexion. No sensory deficits. Neurological exam: PRESENT: alert, awake, oriented to person, oriented to place, oriented to time, oriented to situation, CN II-XII grossly intact. ABSENT: motor sensory deficit Psychiatric exam: PRESENT: appropriate affect, normal mood. ABSENT: homicidal ideation, suicidal ideation Skin exam: PRESENT: dry, intact, warm. ABSENT: cyanosis, rash Results Laboratory Results: WBC 13.9 10^3/uL (4.0-10.5) H 07/24/19 05:55 RBC 3.15 10^6/uL (3.72-5.28) L 07/24/19 05:55 Hgb 8.7 g/dL (12.0-15.5) L 07/24/19 05:55 Hct 26.5 % (36.0-47.0) L 07/24/19 05:55 MCV 84 fl (80-97) 07/24/19 05:55 MCH 27.7 pg (27.0-33.4) 07/24/19 05:55 MCHC 32.9 g/dL (32.0-36.0) 07/24/19 05:55 RDW 15.6 % (11.5-14.0) H 07/24/19 05:55 Plt Count 493 10^3/uL (150-450) H 07/24/19 05:55 Lymph % (Auto) Not Reportable 07/21/19 06:54 [place] % (Auto) Not Reportable 07/21/19 06:54 Eos % (Auto) Not Reportable 07/21/19 06:54 Baso % (Auto) Not Reportable 07/21/19 06:54 Absolute Neuts (auto) Not Reportable 07/21/19 06:54 Absolute Lymphs (auto) Not Reportable 07/21/19 06:54 Absolute Monos (auto) Not Reportable 07/21/19 06:54 Absolute Eos (auto) Not Reportable 07/21/19 06:54 Absolute Basos (auto) Not Reportable 07/21/19 06:54 Total Counted 100 07/21/19 06:54 Seg Neutrophils % Not Reportable 07/21/19 06:54 Seg Neuts % (Manual) 87 % (42-78) H 07/21/19 06:54 Band Neutrophils % 3 % (3-5) 07/20/19 11:34 Lymphocytes % (Manual) 9 % (13-45) L 07/21/19 06:54 Monocytes % (Manual) 2 % (3-13) L 07/21/19 06:54 Eosinophils % (Manual) 2 % (0-6) 07/21/19 06:54 Basophils % (Manual) 0 % (0-2) 07/21/19 06:54 Abs Neuts (Manual) 20.7 10^3/uL (1.7-8.2) H 07/21/19 06:54 Abs Lymphs (Manual) 2.1 10^3/uL (0.5-4.7) 07/21/19 06:54 Abs Monocytes (Manual) 0.5 10^3/uL (0.1-1.4) 07/21/19 06:54 Absolute Eos (Manual) 0.5 10^3/uL (0.0-0.6) 07/21/19 06:54 Abs Basophils (Manual) 0.0 10^3/uL (0.0-0.2) 07/21/19 06:54 Toxic Granulation SLIGHT 07/21/19 06:54 Toxic Vacuolation PRESENT 07/20/19 11:34 Platelet Comment ADEQUATE 07/21/19 06:54 Polychromasia SLIGHT 07/21/19 06:54 Anisocytosis SLIGHT 07/21/19 06:54 ESR 54 mm/hr (0-30) H 07/20/19 16:02 VBG pH 7.45 (7.30-7.42) H 07/20/19 11:34 VBG pCO2 44.8 mmHg (35-63) 07/20/19 11:34 VBG HCO3 30.6 mmol/L (20-32) 07/20/19 11:34 VBG Base Excess 5.9 mmol/L 07/20/19 11:34 Sodium 136.7 mmol/L (137-145) L 07/22/19 04:44 Potassium 3.7 mmol/L (3.6-5.0) 07/22/19 04:44 Chloride 99 mmol/L (98-107) 07/22/19 04:44 Carbon Dioxide 30 mmol/L (22-30) 07/22/19 04:44 Anion Gap 8 (5-19) 07/22/19 04:44 BUN 9 mg/dL (7-20) 07/22/19 04:44 Creatinine 0.64 mg/dL (0.52-1.25) 07/22/19 04:44 Est GFR ( Amer) > 60 (>60) 07/22/19 04:44 Est GFR (MDRD) Non-Af > 60 (>60) 07/22/19 04:44 Glucose 149 mg/dL (75-110) H 07/22/19 04:44 Lactic Acid 1.1 mmol/L (0.7-2.1) 07/22/19 04:44 Calcium 8.4 mg/dL (8.4-10.2) 07/22/19 04:44 Total Bilirubin 0.6 mg/dL (0.2-1.3) 07/20/19 11:34 Direct Bilirubin 0.2 mg/dL (0.0-0.4) 07/20/19 11:34 Neonat Total Bilirubin Not Reportable 07/20/19 11:34 Neonat Direct Bilirubin Not Reportable 07/20/19 11:34 Neonat Indirect Bili Not Reportable 07/20/19 11:34 AST 28 U/L (14-36) 07/20/19 11:34 ALT 23 U/L (<35) 07/20/19 11:34 Alkaline Phosphatase 138 U/L (38-126) H 07/20/19 11:34 C-Reactive Protein 59.1 mg/L (<10.0) H 07/20/19 11:34 Total Protein 7.6 g/dL (6.3-8.2) 07/20/19 11:34 Albumin 4.3 g/dL (3.5-5.0) 07/20/19 11:34 Urine Color YELLOW 07/20/19 15:25 Urine Appearance CLOUDY 07/20/19 15:25 Urine pH 6.0 (5.0-9.0) 07/20/19 15:25 Ur Specific [place] 1.021 07/20/19 15:25 Urine Protein 30 mg/dL (NEGATIVE) H 07/20/19 15:25 Urine Glucose (UA) NEGATIVE mg/dL (NEGATIVE) 07/20/19 15:25 Urine Ketones NEGATIVE mg/dL (NEGATIVE) 07/20/19 15:25 Urine Blood NEGATIVE (NEGATIVE) 07/20/19 15:25 Urine Nitrite (Reflex) NEGATIVE (NEGATIVE) 07/20/19 15:25 Urine Bilirubin NEGATIVE (NEGATIVE) 07/20/19 15:25 Urine Urobilinogen NEGATIVE mg/dL (<2.0) 07/20/19 15:25 Leukocyte Esterase Rfl SMALL (NEGATIVE) H 07/20/19 15:25 Urine RBC (Auto) 8 /HPF 07/20/19 15:25 U Hyaline Cast (Auto) 9 /LPF 07/20/19 15:25 Urine Bacteria (Auto) 2+ /HPF 07/20/19 15:25 Urine WBC (Reflex) 5 /HPF 07/20/19 15:25 Squamous Epi Cells Auto 7 /HPF 07/20/19 15:25 Urine Mucus (Auto) OCC /LPF 07/20/19 15:25 Urine Ascorbic Acid NEGATIVE (NEGATIVE) 07/20/19 15:25 Time Trough Drawn 0555 07/24/19 05:55 Vancomycin Trough 16.3 ug/mL (5.0-20.0) 07/24/19 05:55 Slides for Path Review PATHOLOGIST REVIEWED 07/20/19 11:34 Impressions: Knee X-Ray 07/20/19 12:03 IMPRESSION: Septic joint with surrounding soft tissue infection Guidance Fluoroscopy 07/22/19 00:00 IMPRESSION: SUCCESSFUL PLACEMENT OF A 5 FR DUAL LUMEN 41 CM PICC IN THE LEFT BASILIC VEIN. Interventional Vascular Procedure 07/22/19 00:00 IMPRESSION: SUCCESSFUL PLACEMENT OF A 5 FR DUAL LUMEN 41 CM PICC IN THE LEFT BASILIC VEIN. PICC Line Insertion 07/22/19 00:00 IMPRESSION: SUCCESSFUL PLACEMENT OF A 5 FR DUAL LUMEN 41 CM PICC IN THE LEFT BASILIC VEIN. Plan Health Concerns: Patient has progressed appropriately after irrigation debridement right total knee arthroplasty. Appreciate consultation from infectious disease and internal medicine. Patient will continue IV Zosyn/PO Rifampin x 6weeks. Patient will w/ Dr. Sosa 7 days for wound check. Patient is to call the office with questions or concerns including increasing redness, swelling, drainage, temperature greater than 101.5. Patient was read above instructions understood above instructions orthopedically stable for discharge to home. Stroke Is this a Stroke Patient?: No Acute Heart Failure - Is this a Heart Failure Patient?: No
--- NOTE | 2019-07-25 08:01 | PDOC DISCHARGE SUMMARY ---
Impression - Admit/DC Date/PCP Admission Date/Primary Care Provider: 07/20/19 15:41 BETH GREEN MD Discharge Date: 07/25/19 - Discharge Diagnosis (1) Elevated lactic acid level Is this a current diagnosis for this admission?: Yes (2) Right knee pain Is this a current diagnosis for this admission?: Yes (3) Sepsis Is this a current diagnosis for this admission?: Yes - Assessment Summary: 07/22/2019 Temp this morning 99.9 since however gone down to 97.9 Patient did have a fever yesterday of 102.2 and on admission it was 103.0 Pulse running in the mid 90s, blood pressure 141/78 O2 sats between 90 and 94% on 3 L nasal cannula Admission her white count was 30,000 today is down to 18,500, chemistry grossly normal Wound culture growing out gram-negative rods however blood culture negative after 48 hours Patient currently on Maxipime day 3 and vancomycin day 2 Agree with infectious disease consult 07/23/2019 Patient has been afebrile now x48 hours Infectious disease consult pending Antibiotic treatment as above note White blood cell count continues to decrease today is 11,800 Patient seen by physical therapy yesterday for gait assistance and baseline evaluation 07/24/2019 Per infectious disease will discharge patient tomorrow on Zosyn 3.375 mg IV every 8 hours x4 weeks Also rifampin 600 mg p.o. daily x4 weeks. Changing her antibiotic schedule today have home health check weekly CBC, CMP, ESR, CRP Stop date for antibiotics will be September 04, total of 6 weeks IV antibiotics - Additional Information Resuscitation Status: Full Code Discharge Diet: As Tolerated Discharge Activity: Activity As Tolerated, No Driving, No Lifting Over 10 Pounds, No Lifting/Push/Pulling, Walk Frequently Referrals: [facility] [Other] KELTON SOSA MD [ACTIVE STAFF] - 07/31/19 9:45 am (07/21 S/P RIGHT TOTAL KNEE FOLLOW UP WITH MARGARET CASTILLO) Prescriptions: Oxycodone HCl/Acetaminophen [Percocet 7.5-325 mg Tablet] 1 tab PO Q6 PRN #25 tab PRN Reason: Home Medications: Albuterol Sulfate [Ventolin 0.083% Neb 2.5 mg/3 mL Ampul] 1 vial NEB QID 07/21/15 Amlodipine Besylate 10 mg PO QAM 07/21/15 Budesonide/Formoterol Fumarate [Symbicort HFA 160-4.5 mcg Inhaler 6 gm] 2 puff IH Q12 07/21/15 Cyclobenzaprine HCl [Flexeril 10 mg Tablet] 10 mg PO BIDP PRN 07/21/15 Diazepam [Valium 5 mg Tablet] 5 mg PO DAILY 07/21/15 Diclofenac Sodium [Voltaren] 75 mg PO BID 07/21/15 Levothyroxine Sodium [Synthroid] 175 mcg PO QAM 07/21/15 Omeprazole [Prilosec] 20 mg PO QPM 07/21/15 Paroxetine HCl [Paxil] 20 mg PO QHS 07/21/15 Loratadine [Claritin 10 mg Tablet] 10 mg PO DAILY 01/08/18 Rosuvastatin Calcium 10 mg PO QPM 01/08/18 Gabapentin 600 mg PO DAILY 06/16/19 Acetaminophen [Tylenol Extra Strength 500 mg Tablet] 2 tab PO Q4HP PRN 07/21/19 Albuterol Sulfate [Ventolin Hfa 8 gm Mdi (1 Mdi/ER Disp)] 2 puff IH Q4HP PRN 07/21/19 Oxycodone HCl/Acetaminophen [Percocet 7.5-325 mg Tablet] 1 tab PO Q6 PRN #25 tab 07/21/19 History of Present Illiness History of Present Illness: ROSALBA CORTEZ is a 58 year old female Hospital Course Hospital Course: On 07/21/2019 patient underwent irrigation and debridement right total knee arthroplasty with polyethylene exchange and repair of the patellar tendon. Postop day #1 patient was doing well pain was controlled. She still has some residual fevers but they continue to improve. She began physical therapy and was able to ambulate with a knee immobilizer. Patient initial white count was 30 which decreased to 13. Patient had no fever or chills for over 24 hours. Infectious disease was consulted and recommended Zosyn and rifampin for patient's polymicrobial infection. Drain was discharged on 07/24/2019 with drainage less than 25 cc. On 07/25/2019 patient was doing well denied fever chills or sweats. Pain was controlled at that point decision was made to proceed with discharge home with IV Zosyn and p.o. rifampin as per infectious disease regimen Physical Exam Vital Signs: Temp Pulse Resp BP Pulse Ox 97.9 F 72 16 153/86 H 92 07/24/19 12:50 07/24/19 15:45 07/24/19 15:45 07/24/19 12:50 07/24/19 15:45 Intake & Output 07/23/19 07/24/19 07/25/19 06:59 06:59 06:59 Intake Total 2176 3810 2404 Output Total 1950 45 Balance 226 3765 2404 Weight 108.5 kg 109.7 kg Results Laboratory Results: WBC 13.9 10^3/uL (4.0-10.5) H 07/24/19 05:55 RBC 3.15 10^6/uL (3.72-5.28) L 07/24/19 05:55 Hgb 8.7 g/dL (12.0-15.5) L 07/24/19 05:55 Hct 26.5 % (36.0-47.0) L 07/24/19 05:55 MCV 84 fl (80-97) 07/24/19 05:55 MCH 27.7 pg (27.0-33.4) 07/24/19 05:55 MCHC 32.9 g/dL (32.0-36.0) 07/24/19 05:55 RDW 15.6 % (11.5-14.0) H 07/24/19 05:55 Plt Count 493 10^3/uL (150-450) H 07/24/19 05:55 Lymph % (Auto) Not Reportable 07/21/19 06:54 [place] % (Auto) Not Reportable 07/21/19 06:54 Eos % (Auto) Not Reportable 07/21/19 06:54 Baso % (Auto) Not Reportable 07/21/19 06:54 Absolute Neuts (auto) Not Reportable 07/21/19 06:54 Absolute Lymphs (auto) Not Reportable 07/21/19 06:54 Absolute Monos (auto) Not Reportable 07/21/19 06:54 Absolute Eos (auto) Not Reportable 07/21/19 06:54 Absolute Basos (auto) Not Reportable 07/21/19 06:54 Total Counted 100 07/21/19 06:54 Seg Neutrophils % Not Reportable 07/21/19 06:54 Seg Neuts % (Manual) 87 % (42-78) H 07/21/19 06:54 Band Neutrophils % 3 % (3-5) 07/20/19 11:34 Lymphocytes % (Manual) 9 % (13-45) L 07/21/19 06:54 Monocytes % (Manual) 2 % (3-13) L 07/21/19 06:54 Eosinophils % (Manual) 2 % (0-6) 07/21/19 06:54 Basophils % (Manual) 0 % (0-2) 07/21/19 06:54 Abs Neuts (Manual) 20.7 10^3/uL (1.7-8.2) H 07/21/19 06:54 Abs Lymphs (Manual) 2.1 10^3/uL (0.5-4.7) 07/21/19 06:54 Abs Monocytes (Manual) 0.5 10^3/uL (0.1-1.4) 07/21/19 06:54 Absolute Eos (Manual) 0.5 10^3/uL (0.0-0.6) 07/21/19 06:54 Abs Basophils (Manual) 0.0 10^3/uL (0.0-0.2) 07/21/19 06:54 Toxic Granulation SLIGHT 07/21/19 06:54 Toxic Vacuolation PRESENT 07/20/19 11:34 Platelet Comment ADEQUATE 07/21/19 06:54 Polychromasia SLIGHT 07/21/19 06:54 Anisocytosis SLIGHT 07/21/19 06:54 ESR 54 mm/hr (0-30) H 07/20/19 16:02 VBG pH 7.45 (7.30-7.42) H 07/20/19 11:34 VBG pCO2 44.8 mmHg (35-63) 07/20/19 11:34 VBG HCO3 30.6 mmol/L (20-32) 07/20/19 11:34 VBG Base Excess 5.9 mmol/L 07/20/19 11:34 Sodium 136.7 mmol/L (137-145) L 07/22/19 04:44 Potassium 3.7 mmol/L (3.6-5.0) 07/22/19 04:44 Chloride 99 mmol/L (98-107) 07/22/19 04:44 Carbon Dioxide 30 mmol/L (22-30) 07/22/19 04:44 Anion Gap 8 (5-19) 07/22/19 04:44 BUN 9 mg/dL (7-20) 07/22/19 04:44 Creatinine 0.64 mg/dL (0.52-1.25) 07/22/19 04:44 Est GFR ( Amer) > 60 (>60) 07/22/19 04:44 Est GFR (MDRD) Non-Af > 60 (>60) 07/22/19 04:44 Glucose 149 mg/dL (75-110) H 07/22/19 04:44 Lactic Acid 1.1 mmol/L (0.7-2.1) 07/22/19 04:44 Calcium 8.4 mg/dL (8.4-10.2) 07/22/19 04:44 Total Bilirubin 0.6 mg/dL (0.2-1.3) 07/20/19 11:34 Direct Bilirubin 0.2 mg/dL (0.0-0.4) 07/20/19 11:34 Neonat Total Bilirubin Not Reportable 07/20/19 11:34 Neonat Direct Bilirubin Not Reportable 07/20/19 11:34 Neonat Indirect Bili Not Reportable 07/20/19 11:34 AST 28 U/L (14-36) 07/20/19 11:34 ALT 23 U/L (<35) 07/20/19 11:34 Alkaline Phosphatase 138 U/L (38-126) H 07/20/19 11:34 C-Reactive Protein 59.1 mg/L (<10.0) H 07/20/19 11:34 Total Protein 7.6 g/dL (6.3-8.2) 07/20/19 11:34 Albumin 4.3 g/dL (3.5-5.0) 07/20/19 11:34 Urine Color YELLOW 07/20/19 15:25 Urine Appearance CLOUDY 07/20/19 15:25 Urine pH 6.0 (5.0-9.0) 07/20/19 15:25 Ur Specific [place] 1.021 07/20/19 15:25 Urine Protein 30 mg/dL (NEGATIVE) H 07/20/19 15:25 Urine Glucose (UA) NEGATIVE mg/dL (NEGATIVE) 07/20/19 15:25 Urine Ketones NEGATIVE mg/dL (NEGATIVE) 07/20/19 15:25 Urine Blood NEGATIVE (NEGATIVE) 07/20/19 15:25 Urine Nitrite (Reflex) NEGATIVE (NEGATIVE) 07/20/19 15:25 Urine Bilirubin NEGATIVE (NEGATIVE) 07/20/19 15:25 Urine Urobilinogen NEGATIVE mg/dL (<2.0) 07/20/19 15:25 Leukocyte Esterase Rfl SMALL (NEGATIVE) H 07/20/19 15:25 Urine RBC (Auto) 8 /HPF 07/20/19 15:25 U Hyaline Cast (Auto) 9 /LPF 07/20/19 15:25 Urine Bacteria (Auto) 2+ /HPF 07/20/19 15:25 Urine WBC (Reflex) 5 /HPF 07/20/19 15:25 Squamous Epi Cells Auto 7 /HPF 07/20/19 15:25 Urine Mucus (Auto) OCC /LPF 07/20/19 15:25 Urine Ascorbic Acid NEGATIVE (NEGATIVE) 07/20/19 15:25 Time Trough Drawn 0555 07/24/19 05:55 Vancomycin Trough 16.3 ug/mL (5.0-20.0) 07/24/19 05:55 Slides for Path Review PATHOLOGIST REVIEWED 07/20/19 11:34 Impressions: Knee X-Ray 07/20/19 12:03 IMPRESSION: Septic joint with surrounding soft tissue infection Guidance Fluoroscopy 07/22/19 00:00 IMPRESSION: SUCCESSFUL PLACEMENT OF A 5 FR DUAL LUMEN 41 CM PICC IN THE LEFT BASILIC VEIN. Interventional Vascular Procedure 07/22/19 00:00 IMPRESSION: SUCCESSFUL PLACEMENT OF A 5 FR DUAL LUMEN 41 CM PICC IN THE LEFT BASILIC VEIN. PICC Line Insertion 07/22/19 00:00 IMPRESSION: SUCCESSFUL PLACEMENT OF A 5 FR DUAL LUMEN 41 CM PICC IN THE LEFT BASILIC VEIN. Plan Health Concerns: Patient has progressed appropriately after irrigation debridement right total knee arthroplasty. Appreciate consultation from infectious disease and internal medicine. Patient will continue IV Zosyn/PO Rifampin x 6weeks. Patient will w/ Dr. Sosa 7 days for wound check. Patient is to call the office with questions or concerns including increasing redness, swelling, drainage, temperature greater than 101.5. Patient was read above instructions understood above instructions orthopedically stable for discharge to home. Stroke Is this a Stroke Patient?: No Acute Heart Failure - Is this a Heart Failure Patient?: No
[2019-07-25 09:52] VITALS: BP 111/58
[2019-07-25] MEDS: FLUTICASONE/VILANTEROL 200-25 MCG/DOSE IH SCH (10:04)
[2019-07-25] MEDS: LORATADINE 10 MG TABLET PO SCH (10:04)
[2019-07-25] MEDS: NORMAL SALINE 10 ML SDV (SCHEDULED) IV SCH (10:05)
[2019-07-25] MEDS: DIAZEPAM 5 MG TABLET PO SCH (10:05)
[2019-07-25] MEDS: GABAPENTIN 300 MG CAPSULE PO SCH (10:05)
== END 2019-07-25 12:19 | disposition home health service (06) | DRG 485 ==
LOC: ER 11:00 → EH 15:41 → 5 20:00
PROVIDERS: ADMIT Family Medicine; ATTEND Family Medicine
PROC: 0SUV09Z Supplement Right Knee Joint, Tibial Surface with Liner, Open Approach (ICD-10-PCS; 2019-07-21)
PROC: 0LQQ0ZZ Repair Right Knee Tendon, Open Approach (ICD-10-PCS; 2019-07-21)
PROC: 0SPC09Z Removal of Liner from Right Knee Joint, Open Approach (ICD-10-PCS; principal; 2019-07-21 16:00)
PROC: 02HV33Z Insertion of Infusion Device into Superior Vena Cava, Percutaneous Approach (ICD-10-PCS; 2019-07-22)
PROC: B5181ZA Fluoroscopy of Superior Vena Cava using Low Osmolar Contrast, Guidance (ICD-10-PCS; 2019-07-22)
PROC: B548ZZA Ultrasonography of Superior Vena Cava, Guidance (ICD-10-PCS; 2019-07-22)
DX: T84.53XA Infection and inflammatory reaction due to internal right knee prosthesis, initial encounter (principal); A41.9 Sepsis, unspecified organism; M00.861 Arthritis due to other bacteria, right knee; M00.09 Staphylococcal polyarthritis; B95.2 Enterococcus as the cause of diseases classified elsewhere; B95.61 Methicillin susceptible Staphylococcus aureus infection as the cause of diseases classified elsewhere; E03.9 Hypothyroidism, unspecified; F32.9 Major depressive disorder, single episode, unspecified; F41.9 Anxiety disorder, unspecified; E78.5 Hyperlipidemia, unspecified; I10 Essential (primary) hypertension; J44.9 Chronic obstructive pulmonary disease, unspecified; M66.861 Spontaneous rupture of other tendons, right lower leg; M66.88 Spontaneous rupture of other tendons, other sites; E78.00 Pure hypercholesterolemia, unspecified; Z96.653 Presence of artificial knee joint, bilateral; Z79.890 Hormone replacement therapy; Z79.899 Other long term (current) drug therapy
CPT/HCPCS: 01320; 36415; 36569; 76937; 77001; 80048; 80053; 80202; 81001; 82803; 83605; 85025; 85027; 85652; 86140; 87015; 87040; 87070; 87075; 87077; 87101; 87116; 87186; 87205; 87206; 93005; 93010; 94640; 94799; 96361; 96365; 96367; 96375; 96376; 99285; C1776; J0131; J0330; J0692; J1100; J1170; J1642; J1885; J2250; J2270; J2370; J2405; J2543; J2550; J2704; J3010; J3370; J3490; J7030; J7050; J7060; J7620; L1830

== ENCOUNTER → 2020-01-27 | Outpatient (CLI) | payer MEDICARE ==
[2020-01-27 13:49] LABS: ABSOLUTE BASOPHILS # (AUTO) 0.1 10^3/uL (0.0-0.2); ABSOLUTE EOSINOPHILS # (AUTO) 0.6 10^3/uL (0.0-0.6); ABSOLUTE LYMPHOCYTES (AUTO) 3.1 10^3/uL (0.5-4.7); ABSOLUTE MONOCYTES (AUTO) 0.9 10^3/uL (0.1-1.4); ABSOLUTE NEUT (AUTO) 6.7 10^3/uL (1.7-8.2); BASOPHILS % (AUTO) 0.9 % (0-2); EOSINOPHILS % (AUTO) 5.5 % (0-6); HEMATOCRIT 34.8 % (36.0-47.0); HEMOGLOBIN 11.4 g/dL (12.0-15.5); MEAN CORPUSCULAR HEMOGLOBIN 23.4 pg (27.0-33.4); MEAN CORPUSCULAR HGB CONC 32.8 g/dL (32.0-36.0); MEAN CORPUSCULAR VOLUME 71 fl (80-97); MONOCYTES % (AUTO) 7.7 % (3-13); PLATELET COUNT 534 10^3/uL (150-450); RED BLOOD COUNT 4.89 10^6/uL (3.72-5.28); RED CELL DISTRIBUTION WIDTH 18.3 % (11.5-14.0); SEGMENTED NEUTROPHILS % (AUTO) 58.9 % (42-78); TOTAL CELLS COUNTED % (AUTO) 100 %; WHITE BLOOD COUNT 11.4 10^3/uL (4.0-10.5)
[2020-01-27 13:55] LABS: APPEARANCE,URINE CLOUDY; BILIRUBIN,URINE NEGATIVE (NEGATIVE); GLUCOSE, URINE NEGATIVE (NEGATIVE); KETONES,URINE TRACE mg/dL (NEGATIVE); LEUKOCYTE ESTERASE,URINE MODERATE (NEGATIVE); NITRITE,URINE NEGATIVE (NEGATIVE); PROTEIN,URINE 30 mg/dL (NEGATIVE); URINE SPECIFIC GRAVITY 1.025
[2020-01-27 13:57] LABS: COLOR,URINE DARK YELLOW
--- NOTE | 2020-01-27 14:12 | RADIOLOGY REPORT (SQ) ---
EXAM DESCRIPTION: CHEST PA/LATERAL IMAGES COMPLETED DATE/TIME: 01/27/2020 1:42 pm REASON FOR STUDY: PRE-OP COMPARISON: None. EXAM PARAMETERS: NUMBER OF VIEWS: two views TECHNIQUE: Digital Frontal and Lateral radiographic views of the chest acquired. RADIATION DOSE: NA LIMITATIONS: none FINDINGS: LUNGS AND PLEURA: No opacities, masses or pneumothorax. No pleural effusion. MEDIASTINUM AND HILAR STRUCTURES: No masses or contour abnormalities. HEART AND VASCULAR STRUCTURES: Heart normal size. No evidence for failure. BONES: No acute findings. HARDWARE: Moderate scoliosis. OTHER: No other significant finding. IMPRESSION: Moderate scoliosis. No acute cardiopulmonary finding. TECHNICAL DOCUMENTATION: JOB ID: [id number] 2010 [employer]- All Rights Reserved Reading location - IP/workstation name: [email or web address]
[2020-01-27 14:13] LABS: ANION GAP 6 (5-19); BLOOD UREA NITROGEN 16 mg/dL (7-20); CALCIUM 9.6 mg/dL (8.4-10.2); CARBON DIOXIDE 34 mmol/L (22-30); CHLORIDE 98 mmol/L (98-107); GLUCOSE 101 mg/dL (75-110); POTASSIUM 4.7 mmol/L (3.6-5.0)
--- NOTE | 2020-01-27 14:18 | EKG REPORT ---
SEVERITY:- NORMAL ECG - SINUS RHYTHM : Confirmed by: Ramesh Caal MD 27-Jan-2020 14:17:39
== END ==
LOC: OD 12:58
PROVIDERS: ATTEND Orthopaedic Surgery
DX: Z01.810 Encounter for preprocedural cardiovascular examination (principal); Z01.811 Encounter for preprocedural respiratory examination; Z01.812 Encounter for preprocedural laboratory examination; M41.9 Scoliosis, unspecified
CPT/HCPCS: 36415; 71046; 80048; 81001; 85025; 93005; 93010

== ENCOUNTER 2020-04-05 10:08 | Inpatient (IN) | payer MEDICARE ==
[2020-04-01 13:54] LABS: HEMATOCRIT 33.5 % (36.0-47.0); HEMOGLOBIN 10.6 g/dL (12.0-15.5); MEAN CORPUSCULAR HEMOGLOBIN 21.7 pg (27.0-33.4); MEAN CORPUSCULAR HGB CONC 31.7 g/dL (32.0-36.0); MEAN CORPUSCULAR VOLUME 69 fl (80-97); PLATELET COUNT 368 10^3/uL (150-450); RED CELL DISTRIBUTION WIDTH 18.4 % (11.5-14.0); WHITE BLOOD COUNT 11.8 10^3/uL (4.0-10.5)
[2020-04-01 14:03] LABS: APPEARANCE,URINE CLEAR; BILIRUBIN,URINE NEGATIVE (NEGATIVE); COLOR,URINE YELLOW; GLUCOSE, URINE NEGATIVE (NEGATIVE); KETONES,URINE NEGATIVE (NEGATIVE); LEUKOCYTE ESTERASE,URINE TRACE (NEGATIVE); NITRITE,URINE NEGATIVE (NEGATIVE); PROTEIN,URINE 30 mg/dL (NEGATIVE); URINE SPECIFIC GRAVITY 1.021; UROBILINOGEN,URINE NEGATIVE mg/dL (<2.0)
[2020-04-01 14:15] LABS: ANION GAP 11 (5-19); BLOOD UREA NITROGEN 25 mg/dL (7-20); CARBON DIOXIDE 32 mmol/L (22-30); CHLORIDE 98 mmol/L (98-107); GLUCOSE 104 mg/dL (75-110)
[2020-04-05] MEDS ORDERED: IPRATROPIUM/ALBUTEROL 0.5-2.5 MG/3 ML AMPUL NEB ONE ×2 (10:44→10:45)
[2020-04-05] MEDS ORDERED: PANTOPRAZOLE SODIUM 20 MG TABLET.DR PO ONE (10:57)
[2020-04-05] MEDS ORDERED: OXYCODONE HCL SR 10 MG TABLET PO ONE (10:57)
[2020-04-05] MEDS ORDERED: CEFAZOLIN INJ 1 GM VIAL ONE (10:57)
[2020-04-05] MEDS ORDERED: FENTANYL CITRATE INJ/PF 100 MCG/2 ML AMPUL ONE (11:50)
[2020-04-05] MEDS ORDERED: MIDAZOLAM 2 MG/2 ML INJ ONE (11:50)
[2020-04-05] MEDS ORDERED: LIDOCAINE 2% INJ-PF (20 MG/ML) 10 ML AMPUL ONE (11:50)
[2020-04-05] MEDS ORDERED: PROPOFOL INJ 200 MG/20 ML VIAL IV ONE (11:51)
[2020-04-05] MEDS ORDERED: TRANEXAMIC ACID INJ/PF 1,000 MG/10 ML SDV ONE (12:21)
[2020-04-05] MEDS ORDERED: VANCOMYCIN HCL INJ 1000 MG VIAL ONE (13:31)
[2020-04-05] MEDS ORDERED: ALBUTEROL SULFATE HFA (90 MCG/PUFF) 8 GM MDI (1 MDI/ER DISP) IH PRN (14:03)
[2020-04-05] MEDS ORDERED: MAG HYDROX/AL HYDROX/SIMETH SUSP 30 ML UDCUP PO PRN (14:04)
[2020-04-05] MEDS ORDERED: DIPHENHYDRAMINE HCL 50 MG/ML VIAL IV PRN (14:04)
[2020-04-05] MEDS ORDERED: ZOLPIDEM TARTRATE 5 MG TABLET PO PRN (14:04)
[2020-04-05] MEDS ORDERED: ONDANSETRON HCL INJ/PF 4 MG/2 ML SDV IV PRN ×2 (14:04→14:35)
[2020-04-05] MEDS ORDERED: RINGERS SOLUTION,LACTATED 1,000 ML IV PRN (14:04)
[2020-04-05] MEDS ORDERED: ONDANSETRON 4 MG TAB.RAPDIS PO PRN (14:04)
[2020-04-05] MEDS ORDERED: ACETAMINOPHEN 325 MG TABLET PO PRN (14:04)
--- NOTE | 2020-04-05 14:13 | Operative Report ---
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 cone Tibial liner: 19 mm TS insert Patella: None Procedure with the patient supine on the operating table the [] the limb is prepped and draped in a sterile fashion. The limb was elevated for exsanguination and the tourniquet inflated to 280 torr. A standard midline median parapatellar approach the knee is taken in a previous surgical approach. This is gained to the knee cavity and a scant amount of serosanguineous fluid is identified. This is sent for culture and sensitivity. The existing polymethylmethacrylate spacer was removed piecemeal using an osteotome. The knee bed is debrided meticulously and then irrigated with normal saline data Betadine and pulse lavage.. The femur is prepared using a series cylindrical reamers until a 17 mm reamer is seated. This is then used to fashion revision distal, anterior posterior chamfer and posterior cuts with the appropriate alignment instrumentation. Attention was next turned to the tibia. Access was gained to the tibial canal and this is prepared using 0 cylindrical reamers until a 14 mm reamer is seated. The appropriate resection guide is then used to freshen the proximal tibial cut. The proximal tibia is then prepared for a size E cone. Next a trial reduction was performed with the 3 femur 3 tibia and the E. Smith. This provides adequate stability, full extension without hyperextension. All trial implants were removed the wound irrigated again with pulse lavage using normal saline containing Betadine.. Polymethylmethacrylate is mixed with gentamicin and vancomycin. And used to cement the above implants in place. On adequate curing the cement excess cement was removed the tourniquet was deflated hemostasis obtained the wound is then closed in layers using interrupted PDS followed by brianna. A sterile compressive dressing was applied and the patient returned to recovery room in satisfactory condition.
[2020-04-05] MEDS ORDERED: MEPERIDINE HCL/PF INJ 25 MG/1 ML DISP.SYRIN IV PRN (14:35)
[2020-04-05] MEDS ORDERED: OXYCODONE-ACETAMINOPHEN 5-325 MG TABLET PO PRN ×2 (14:35)
[2020-04-05] MEDS ORDERED: MORPHINE SULFATE 10 MG/ML INJ IV PRN (14:35)
[2020-04-05] MEDS ORDERED: FENTANYL CITRATE INJ/PF 100 MCG/2 ML AMPUL IV PRN ×2 (14:35)
[2020-04-05] MEDS ORDERED: ROPIVACAINE HCL 0.2% INJ/PF (2 MG/ML) 20 ML SDV ONE (14:58)
--- NOTE | 2020-04-05 15:30 | RADIOLOGY REPORT (SQ) ---
EXAM DESCRIPTION: KNEE RIGHT 2 VIEWS IMAGES COMPLETED DATE/TIME: 04/05/2020 3:17 pm REASON FOR STUDY: Post OP -Long Cassette in PACU M17.11 UNILATERAL PRIMARY OSTEOARTHRITIS, RIGHT KN EE COMPARISON: None. NUMBER OF VIEWS: Two view(s). TECHNIQUE: Digital radiographic images of the right knee post-procedure. LIMITATIONS: None. FINDINGS: BONES: No worrisome or unexpected findings post-procedure. DEVICE: Total knee arthroplasty SOFT TISSUES: No worrisome findings. Expected postoperative soft tissue changes. IMPRESSION: SATISFACTORY POSTOPERATIVE RIGHT KNEE. TECHNICAL DOCUMENTATION: JOB ID: [id number] 2010 [employer] All Rights Reserved Reading location - IP/workstation name: [email or web address]
[2020-04-05] MEDS: TRANEXAMIC ACID INJ/PF 1,000 MG/10 ML SDV IV ONE ×2 (15:52→17:48)
[2020-04-05] MEDS: OXYCODONE HCL IR 5 MG TABLET PO PRN (17:16)
[2020-04-05] MEDS: SENNOSIDES/DOCUSATE 8.6-50 MG 1 EACH TABLET PO SCH (17:31)
[2020-04-05] MEDS ORDERED: TRANEXAMIC ACID INJ/PF 1,000 MG/10 ML SDV IV ONE (18:00)
[2020-04-05] MEDS: IBUPROFEN 800 MG in NORMAL SALINE 250 ML IV SCH (21:19)
[2020-04-05] MEDS: OXYCODONE HCL SR 10 MG TABLET PO SCH (21:19)
[2020-04-05] MEDS ORDERED: PAROXETINE HCL 20 MG TABLET PO SCH (22:00)
[2020-04-05] MEDS ORDERED: CYCLOBENZAPRINE HCL 10 MG TABLET PO SCH (22:00)
[2020-04-06] MEDS ORDERED: VANCOMYCIN HCL 1,000 MG in DEXTROSE 5%-WATER 250 ML IV ONE (02:04)
[2020-04-06] MEDS: OXYCODONE HCL IR 5 MG TABLET PO PRN (02:14)
[2020-04-06] MEDS ORDERED: PANTOPRAZOLE SODIUM 40 MG TABLET.DR PO SCH (06:00)
[2020-04-06] MEDS ORDERED: LEVOTHYROXINE SODIUM 175 MCG PO SCH (06:00)
[2020-04-06] MEDS ORDERED: LEVOTHYROXINE SODIUM 0.1 MG TABLET PO SCH (06:00)
[2020-04-06] MEDS ORDERED: LEVOTHYROXINE SODIUM 0.075 MG TABLET PO SCH (06:00)
[2020-04-06 06:55] LABS: HEMATOCRIT 23.7 % (36.0-47.0); MEAN CORPUSCULAR HEMOGLOBIN 22.3 pg (27.0-33.4); MEAN CORPUSCULAR HGB CONC 32.5 g/dL (32.0-36.0); MEAN CORPUSCULAR VOLUME 69 fl (80-97); PLATELET COUNT 237 10^3/uL (150-450); RED BLOOD COUNT 3.46 10^6/uL (3.72-5.28); WHITE BLOOD COUNT 9.8 10^3/uL (4.0-10.5)
[2020-04-06 06:59] LABS: HEMOGLOBIN 7.7 g/dL (12.0-15.5)
[2020-04-06] MEDS: IBUPROFEN 800 MG in NORMAL SALINE 250 ML IV SCH (07:02)
[2020-04-06 07:13] LABS: ANION GAP 6 (5-19); BLOOD UREA NITROGEN 18 mg/dL (7-20); CALCIUM 8.8 mg/dL (8.4-10.2); CARBON DIOXIDE 33 mmol/L (22-30); CHLORIDE 99 mmol/L (98-107); GLUCOSE 143 mg/dL (75-110); POTASSIUM 4.3 mmol/L (3.6-5.0)
--- NOTE | 2020-04-06 07:20 | PDOC DISCHARGE SUMMARY ---
Impression - Admit/DC Date/PCP Admission Date/Primary Care Provider: 04/05/20 10:08 BETH GREEN MD Discharge Date: 04/06/20 - Discharge Diagnosis (1) Septic arthritis of knee, right Is this a current diagnosis for this admission?: Yes (2) Infection of knee Is this a current diagnosis for this admission?: Yes - Additional Information Resuscitation Status: Full Code Discharge Diet: Regular Discharge Activity: Balance Activity w/Rest, No Driving, No tub bath Referrals: BETH GREEN MD [Primary Care Provider] - Home Medications: Amlodipine Besylate 10 mg PO QAM 07/21/15 Budesonide/Formoterol Fumarate [Symbicort HFA 160-4.5 mcg Inhaler 6 gm] 2 puff IH Q12 07/21/15 Paroxetine HCl [Paxil] 20 mg PO QHS 07/21/15 Loratadine [Claritin 10 mg Tablet] 10 mg PO QHS 01/08/18 Rosuvastatin Calcium 10 mg PO DAILY 01/08/18 Gabapentin 600 mg PO QAM 06/16/19 Levothyroxine Sodium [Euthyrox] 175 mcg PO Q6AM 02/09/20 Cyclobenzaprine HCl [Flexeril 10 mg Tablet] 5 mg PO QHS 04/01/20 Diazepam [Valium] 5 mg PO BIDP PRN 04/01/20 Diclofenac Sodium [Voltaren 25 Mg Tablet] 25 mg PO BID 04/01/20 Albuterol Sulfate [Ventolin Hfa 8 gm Mdi] 2 puff IH Q6HP PRN 04/05/20 Omeprazole 20 mg PO QHS 04/05/20 History of Present Illiness History of Present Illness: ROSALBA CORTEZ is a 59 year old female 59-year-old white female 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 Patient makes excellent progress ambulating with physical therapy and weightbearing as tolerated basis. Dressing is changed on the first postoperative morning. Wound is well approximated clean dry and intact with brianna. Physical Exam Vital Signs: Temp Pulse Resp BP Pulse Ox 36.6 C 94 18 148/73 H 95 04/05/20 22:49 04/05/20 22:49 04/05/20 22:49 04/05/20 22:49 04/06/20 06:04 Intake & Output 04/05/20 04/06/20 04/07/20 06:59 06:59 06:59 Intake Total 5659 Output Total 3109 Balance 2550 Weight 97.3 kg General appearance: PRESENT: no acute distress, obese Respiratory exam: PRESENT: unlabored Cardiovascular exam: PRESENT: RRR Pulses: PRESENT: +1 pedal pulses bilateral Vascular exam: PRESENT: normal capillary refill GI/Abdominal exam: PRESENT: soft Results Laboratory Results: WBC 9.8 10^3/uL (4.0-10.5) 04/06/20 05:43 RBC 3.46 10^6/uL (3.72-5.28) L 04/06/20 05:43 Hgb 7.7 g/dL (12.0-15.5) L 04/06/20 05:43 Hct 23.7 % (36.0-47.0) L 04/06/20 05:43 MCV 69 fl (80-97) L 04/06/20 05:43 MCH 22.3 pg (27.0-33.4) L 04/06/20 05:43 MCHC 32.5 g/dL (32.0-36.0) 04/06/20 05:43 RDW 18.0 % (11.5-14.0) H 04/06/20 05:43 Plt Count 237 10^3/uL (150-450) 04/06/20 05:43 Sodium 141.1 mmol/L (137-145) 04/01/20 13:21 Potassium 5.0 mmol/L (3.6-5.0) 04/01/20 13:21 Chloride 98 mmol/L (98-107) 04/01/20 13:21 Carbon Dioxide 32 mmol/L (22-30) H 04/01/20 13:21 Anion Gap 11 (5-19) 04/01/20 13:21 BUN 25 mg/dL (7-20) H 04/01/20 13:21 Creatinine 0.96 mg/dL (0.52-1.25) 04/01/20 13:21 Est GFR ( Amer) > 60 (>60) 04/01/20 13:21 Est GFR (MDRD) Non-Af 59 (>60) L 04/01/20 13:21 Glucose 104 mg/dL (75-110) 04/01/20 13:21 Calcium 10.0 mg/dL (8.4-10.2) 04/01/20 13:21 Urine Color YELLOW 04/01/20 13:05 Urine Appearance CLEAR 04/01/20 13:05 Urine pH 6.0 (5.0-9.0) 04/01/20 13:05 Ur Specific [place] 1.021 04/01/20 13:05 Urine Protein 30 mg/dL (NEGATIVE) H 04/01/20 13:05 Urine Glucose (UA) NEGATIVE mg/dL (NEGATIVE) 04/01/20 13:05 Urine Ketones NEGATIVE mg/dL (NEGATIVE) 04/01/20 13:05 Urine Blood NEGATIVE (NEGATIVE) 04/01/20 13:05 Urine Nitrite NEGATIVE (NEGATIVE) 04/01/20 13:05 Urine Bilirubin NEGATIVE (NEGATIVE) 04/01/20 13:05 Urine Urobilinogen NEGATIVE mg/dL (<2.0) 04/01/20 13:05 Ur Leukocyte Esterase TRACE (NEGATIVE) H 04/01/20 13:05 Urine WBC (Auto) 1 /HPF 04/01/20 13:05 Urine RBC (Auto) 1 /HPF 04/01/20 13:05 U Hyaline Cast (Auto) 1 /LPF 04/01/20 13:05 Urine Bacteria (Auto) TRACE /HPF 04/01/20 13:05 Squamous Epi Cells Auto 1 /HPF 04/01/20 13:05 Urine Mucus (Auto) RARE /LPF 04/01/20 13:05 Urine Ascorbic Acid NEGATIVE (NEGATIVE) 04/01/20 13:05 COVID-19 Source See comment 04/01/20 13:10 COVID-19 (TOMASZ) Not Detected (Not Detect) 04/01/20 13:10 Impressions: Knee X-Ray 04/05/20 14:06 IMPRESSION: SATISFACTORY POSTOPERATIVE RIGHT KNEE. Plan Plan of Treatment: Patient to be discharged home in a weightbearing as tolerated basis with home health services and DME. Follow-up Dr. Sosa and [facility] for surgery in 2 weeks for staple removal. Time Spent: Less than 30 Minutes Stroke Is this a Stroke Patient?: No Stroke Pt being discharged on Anti-thrombolytic therapy?: Yes Acute Heart Failure Is this a Heart Failure Patient?: No
[2020-04-06 08:08] VITALS: BP 149/79
[2020-04-06] MEDS: OXYCODONE HCL SR 10 MG TABLET PO SCH (09:10)
[2020-04-06] MEDS: SENNOSIDES/DOCUSATE 8.6-50 MG 1 EACH TABLET PO SCH (09:11)
[2020-04-06] MEDS ORDERED: (PENDING PHARMACY ID) (Rosuvastatin Calcium [Rosuvastatin Calcium] 10 MG) PO SCH (10:00)
[2020-04-06] MEDS ORDERED: FAMOTIDINE 20 MG TABLET PO SCH (10:00)
[2020-04-06] MEDS ORDERED: AMLODIPINE BESYLATE 10 MG TABLET PO SCH (10:00)
[2020-04-06] MEDS ORDERED: GABAPENTIN 300 MG CAPSULE PO SCH (10:00)
[2020-04-06] MEDS ORDERED: PRENATAL VITAMIN W DHA CAPSULE PO SCH (10:00)
[2020-04-06] MEDS ORDERED: FLUTICASONE/VILANTEROL 200-25 MCG/DOSE IH SCH (10:00)
[2020-04-06] MEDS ORDERED: ATORVASTATIN CALCIUM 20 MG TABLET PO SCH (22:00)
== END 2020-04-06 12:21 | disposition home health service (06) | DRG 468 ==
LOC: INOR 10:08 → 4S 15:50
PROVIDERS: ADMIT Orthopaedic Surgery; ATTEND Orthopaedic Surgery
PROC: 0SRC0J9 Replacement of Right Knee Joint with Synthetic Substitute, Cemented, Open Approach (ICD-10-PCS; 2020-04-05)
PROC: 0SPC08Z Removal of Spacer from Right Knee Joint, Open Approach (ICD-10-PCS; principal; 2020-04-05 11:15)
DX: M17.11 Unilateral primary osteoarthritis, right knee (principal); M06.9 Rheumatoid arthritis, unspecified; I10 Essential (primary) hypertension; E03.9 Hypothyroidism, unspecified; K21.9 Gastro-esophageal reflux disease without esophagitis; F41.8 Other specified anxiety disorders; J44.9 Chronic obstructive pulmonary disease, unspecified; Z96.653 Presence of artificial knee joint, bilateral; Z20.828 Contact with and (suspected) exposure to other viral communicable diseases
CPT/HCPCS: 01402; 36415; 80048; 81001; 85027; 87070; 87075; 87205; 87635; 94799; C1713; C1776; C9803; J0690; J1741; J2250; J2704; J2795; J3010; J3370; J3490; J7050; J7060; L1830

== ENCOUNTER → 2020-04-21 | Outpatient (CLI) | payer MEDICARE ==
[2020-04-21 15:27] LABS: HEMATOCRIT 26.9 % (36.0-47.0); HEMOGLOBIN 8.9 g/dL (12.0-15.5); MEAN CORPUSCULAR HEMOGLOBIN 22.2 pg (27.0-33.4); MEAN CORPUSCULAR HGB CONC 33.2 g/dL (32.0-36.0); MEAN CORPUSCULAR VOLUME 67 fl (80-97); PLATELET COUNT 665 10^3/uL (150-450); RED BLOOD COUNT 4.02 10^6/uL (3.72-5.28); RED CELL DISTRIBUTION WIDTH 18.4 % (11.5-14.0)
[2020-04-21 15:49] LABS: ALBUMIN 4.7 g/dL (3.5-5.0); ALKALINE PHOSPHATASE 146 U/L (38-126); ANION GAP 11 (5-19); ASPARTATE AMINO TRANSFERASE 25 U/L (14-36); BILIRUBIN,DIRECT 0.3 mg/dL (0.0-0.4); BILIRUBIN,TOTAL 0.3 mg/dL (0.2-1.3); BLOOD UREA NITROGEN 21 mg/dL (7-20); C-REACTIVE PROTEIN 12.8 mg/L (<10.0); CALCIUM 9.4 mg/dL (8.4-10.2); CARBON DIOXIDE 31 mmol/L (22-30); CHLORIDE 99 mmol/L (98-107); GLUCOSE 114 mg/dL (75-110); POTASSIUM 4.4 mmol/L (3.6-5.0)
[2020-04-21 16:34] LABS: ERYTHROCYTE SEDIMENTATION RATE 40 mm/hr (0-30)
== END ==
LOC: OD 14:06
PROVIDERS: ATTEND Orthopaedic Surgery
DX: T84.53XA Infection and inflammatory reaction due to internal right knee prosthesis, initial encounter (principal)
CPT/HCPCS: 36415; 80053; 85027; 85652; 86140

== ENCOUNTER → 2020-06-03 | Outpatient (CLI) | payer MEDICARE ==
[2020-06-03 13:18] LABS: HEMATOCRIT 29.2 % (36.0-47.0); HEMOGLOBIN 8.9 g/dL (12.0-15.5); MEAN CORPUSCULAR HEMOGLOBIN 19.2 pg (27.0-33.4); MEAN CORPUSCULAR HGB CONC 30.6 g/dL (32.0-36.0); PLATELET COUNT 492 10^3/uL (150-450); RED BLOOD COUNT 4.65 10^6/uL (3.72-5.28); RED CELL DISTRIBUTION WIDTH 18.2 % (11.5-14.0); WHITE BLOOD COUNT 11.1 10^3/uL (4.0-10.5)
[2020-06-03 13:46] LABS: ALBUMIN 4.5 g/dL (3.5-5.0); ALKALINE PHOSPHATASE 139 U/L (38-126); ANION GAP 11 (5-19); ASPARTATE AMINO TRANSFERASE 21 U/L (14-36); BILIRUBIN,DIRECT 0.3 mg/dL (0.0-0.4); BILIRUBIN,TOTAL 0.4 mg/dL (0.2-1.3); BLOOD UREA NITROGEN 20 mg/dL (7-20); C-REACTIVE PROTEIN 34.6 mg/L (<10.0); CALCIUM 9.8 mg/dL (8.4-10.2); CARBON DIOXIDE 35 mmol/L (22-30); CHLORIDE 94 mmol/L (98-107); GLUCOSE 148 mg/dL (75-110); POTASSIUM 4.4 mmol/L (3.6-5.0); TOTAL PROTEIN 8.3 g/dL (6.3-8.2)
[2020-06-03 13:47] LABS: MEAN CORPUSCULAR VOLUME 63 fl (80-97)
[2020-06-03 13:59] LABS: ERYTHROCYTE SEDIMENTATION RATE 60 mm/hr (0-30)
[2020-06-04 11:17] LABS: PATH REVIEW PATHOLOGIST REVIEWED
== END ==
LOC: OD 11:40
PROVIDERS: ATTEND Orthopaedic Surgery
DX: M25.561 Pain in right knee (principal)
CPT/HCPCS: 36415; 80053; 85027; 85652; 86140